=== PATIENT | male | born 1975 | race Caucasian/White ===

== ENCOUNTER 2017-12-09 19:44 | Inpatient (IN) ==
--- NOTE | 2017-12-09 19:49 | Emergency Department Note ---
Disposition Clinical Impression: Chronic schizophrenia Disposition: Admitted As Inpatient Condition: Good Time of Disposition: 23:20 General Adult HPI - General Stated complaint: eval Time Seen by Provider: 12/09/17 19:48 Source: patient Mode of arrival: ambulatory Limitations: no limitations Nursing Notes Reviewed: Yes Vital Signs Reviewed: Yes - History of Present Illness HPI Narrative: Male patient presents emergency department complaining of voices in his head that are telling him he cannot eat. [facility]. Does have a history of schizophrenia. Has not been taking his medication. States he has not eaten in the past week. He is agreeable to drink water but is still refusing to eat while here. Patient denies any suicidal or homicidal ideation. - Related Data Home Medications Medication Instructions Recorded Confirmed Benztropine [Cogentin] 0.5 mg PO BID 12/09/17 12/09/17 RX: Simvastatin [Zocor] 40 mg PO HS 12/09/17 12/09/17 risperiDONE [RisperDAL] 2 mg PO HS 12/09/17 12/09/17 Allergies Allergy/AdvReac Type Severity Reaction Status Date / Time shellfish derived Allergy Vomiting Verified 12/09/17 19:51 All systems ED: reviewed and negative except as stated. Review of Systems: As Per HPI Constitutional: Denies: fever, chills Cardiovascular: Denies: chest pain Respiratory: Denies: dyspnea Musculoskeletal: Reports: other (upper leg pain). Denies: back pain, neck pain Neurological: Denies: headache Psychiatric: Reports: auditory hallucinations. Denies: suicidal thoughts, homicidal thoughts, visual hallucinations Past Medical History - Past Medical History Attestation: Yes The following information was validated with the patient. Source: patient Medical history: Reports: no medical history - Social History Smoking Status: Former smoker Smokeless Tobacco Status: No Alcohol use: Reports: none Drug use: Reports: none Physical Exam - General Limitations: no limitations General appearance: alert, in no apparent distress - Head Head exam: atraumatic, normocephalic, normal inspection - Eye Eye exam: Present: normal appearance, PERRL, EOMI - ENT ENT exam: normal exam, normal oropharynx, mucous membranes moist - Neck Neck exam: Present: normal inspection, full ROM, trachea midline - Chest Chest inspection: Present: normal inspection, symmetric chest wall rise - Respiratory Respiratory exam: Absent: respiratory distress, accessory muscle use - Extremities Exam Extremities exam: Present: normal inspection. Absent: pedal edema - Back Exam Back exam: Present: normal inspection, full ROM - Neurological Exam Neurological exam: Present: alert, oriented X3 - Psychiatric Psychiatric exam: Present: flat affect - Skin Skin exam: Present: warm, dry, intact, normal color. Absent: rash, cyanosis Course Course Narrative: Patient is a risk to himself. He is not eating and will not eat while he is here. We have pink slip the patient will have Ia see him. Patient is agreeable with this. We will get a basic lab workup on him as well. He does complain of some aching sensation to his bilateral thigh areas. He is ambulating throughout the room with a blank stare. - Reevaluation(s) Reevaluation #1: We will admit patient to the hospital. Vital Signs Temperature 98.2 F 12/09/17 19:51 Pulse Rate 128 12/09/17 19:51 Respiratory Rate 14 12/09/17 19:51 Blood Pressure 111/87 12/09/17 19:51 O2 Sat by Pulse Oximetry 99 12/09/17 19:51 Temperature 98.2 F 12/09/17 19:51 Pulse Rate 128 12/09/17 19:51 Respiratory Rate 14 12/09/17 19:51 Blood Pressure 111/87 12/09/17 19:51 O2 Sat by Pulse Oximetry 99 12/09/17 19:51 Oxygen Delivery Oxygen Delivery Room Air Medical Decision Making - Medical Records Medical records reviewed: Yes I reviewed the patient's medical records. - Lab Data Lab results reviewed: Yes I reviewed the patient's lab results. Result diagrams: 12/09/17 20:20 12/09/17 20:20 Lab Results 12/09/17 12/09/17 12/09/17 Range/Units 20:05 20:05 20:20 WBC 5.1 (4.3-11.1) K/mcL RBC 5.60 H (4.19-5.50) M/mcL Hgb 16.0 (12.9-16.9) g/dL Hct 47.4 (37.5-50.1) % MCV 84.6 (83.0-100.0) fL MCH 28.6 (28.0-33.3) pg MCHC 33.8 (31.6-35.5) g/dL RDW 13.5 (11.5-14.5) % Plt Count 204 (140-400) K/mcL MPV 11.5 (9.4-12.4) fL Immature Gran % 0.4 (0-4) % Seg Neutrophils % 58.6 % Lymphocytes % 33.1 % Monocytes % 5.9 % Eosinophils % 1.2 % Basophils % 0.8 % Neutrophils # 3.0 (1.6-8.9) K/mcL Lymphocytes # 1.7 (0.6-4.6) K/mcL Monocytes # 0.3 (0.0-1.3) K/mcL Eosinophils # 0.1 (0.0-0.6) K/mcL Basophils # 0.0 (0.0-0.2) K/mcL Sodium (136-145) mEq/L Potassium (3.5-5.1) mEq/L Chloride (98-107) mEq/L Carbon Dioxide (23-29) mEq/L BUN (6-20) mg/dL Creatinine (0.70-1.30) mg/dL Est GFR ( Amer) (> 60) Est GFR (Non-Af Amer) (> 60) BUN/Creatinine Ratio (6-26) Glucose (70-105) mg/dL Calculated Osmolality (280-300) Calcium (8.6-10.3) mg/dL Urine Color Dark Yellow (Yellow) Urine Clarity Turbid A (Clear) Urine pH 6.0 (5.0-8.0) pH Units Ur Specific [place] 1.028 H (1.010-1.025) Urine Protein 30 H (Neg-Trace) mg/dL Urine Glucose (UA) Normal (Normal) mg/dL Urine Ketones 80 H (Negative) mg/dL Urine Blood Negative (Negative) Urine Nitrite Negative (Negative) Urine Bilirubin Moderate H (Negative) Urine Urobilinogen Normal (Normal) mg/dL Ur Leukocyte Esterase Small H (Negative) Urine Microscopic RBC 0-3 (0-3) per hpf Urine Microscopic WBC 0-3 (0-3) per hpf Ur Squamous Epith Cells Many H (None-Few) per lpf [place] Biurate Crystals Present Urine Bacteria None Seen (None-Few) per hpf Urine Mucus Many H (Few) Salicylates (15.0-30.0) mg/dL Urine Opiates Screen Negative (Adqgiw=998) ng/mL Acetaminophen (10-20) mcg/mL Ur Barbiturates Screen Negative (Zqyvub=574) ng/mL Ur Phencyclidine Scrn Negative (Cutoff=25) ng/mL Ur Amphetamines Screen Negative (Dlzwub=1703) ng/mL U Benzodiazepines Scrn Negative (Hdtvrm=789) ng/mL Urine Cocaine Screen Negative (Cutoff= 300) ng/mL U Marijuana (THC) Screen Negative (Cutoff = 50) ng/mL Ur Drug Screen Interp See Below Ethyl Alcohol (Less than 10) mg/dL 12/09/17 Range/Units 20:20 WBC (4.3-11.1) K/mcL RBC (4.19-5.50) M/mcL Hgb (12.9-16.9) g/dL Hct (37.5-50.1) % MCV (83.0-100.0) fL MCH (28.0-33.3) pg MCHC (31.6-35.5) g/dL RDW (11.5-14.5) % Plt Count (140-400) K/mcL MPV (9.4-12.4) fL Immature Gran % (0-4) % Seg Neutrophils % % Lymphocytes % % Monocytes % % Eosinophils % % Basophils % % Neutrophils # (1.6-8.9) K/mcL Lymphocytes # (0.6-4.6) K/mcL Monocytes # (0.0-1.3) K/mcL Eosinophils # (0.0-0.6) K/mcL Basophils # (0.0-0.2) K/mcL Sodium 133 L (136-145) mEq/L Potassium 3.0 L (3.5-5.1) mEq/L Chloride 94 L (98-107) mEq/L Carbon Dioxide 21 L (23-29) mEq/L BUN 31 H (6-20) mg/dL Creatinine 0.87 (0.70-1.30) mg/dL Est GFR ( Amer) > 60 (> 60) Est GFR (Non-Af Amer) > 60 (> 60) BUN/Creatinine Ratio 36 H (6-26) Glucose 93 (70-105) mg/dL Calculated Osmolality 282 (280-300) Calcium 9.9 (8.6-10.3) mg/dL Urine Color (Yellow) Urine Clarity (Clear) Urine pH (5.0-8.0) pH Units Ur Specific [place] (1.010-1.025) Urine Protein (Neg-Trace) mg/dL Urine Glucose (UA) (Normal) mg/dL Urine Ketones (Negative) mg/dL Urine Blood (Negative) Urine Nitrite (Negative) Urine Bilirubin (Negative) Urine Urobilinogen (Normal) mg/dL Ur Leukocyte Esterase (Negative) Urine Microscopic RBC (0-3) per hpf Urine Microscopic WBC (0-3) per hpf Ur Squamous Epith Cells (None-Few) per lpf [place] Biurate Crystals Urine Bacteria (None-Few) per hpf Urine Mucus (Few) Salicylates < 2.5 L (15.0-30.0) mg/dL Urine Opiates Screen (Pjdlmq=018) ng/mL Acetaminophen < 10 L (10-20) mcg/mL Ur Barbiturates Screen (Bmzgvd=453) ng/mL Ur Phencyclidine Scrn (Cutoff=25) ng/mL Ur Amphetamines Screen (Dlhvvs=4772) ng/mL U Benzodiazepines Scrn (Fzdwir=594) ng/mL Urine Cocaine Screen (Cutoff= 300) ng/mL U Marijuana (THC) Screen (Cutoff = 50) ng/mL Ur Drug Screen Interp Ethyl Alcohol < 10 (Less than 10) mg/dL Attestation Statement - Attestation Attestation: I, Solomon Riggs, examined this patient and my medical decision-making was reviewed with the PLANT MACHINIST/PA/Advanced Practice Nurse/Resident Physician. I agree with the documented findings, disposition and treatment plan as described except to the extent set forth below. 42-year-old male brought to emergency department for psychiatric evaluation. [facility] He was sent to the emergency department because he has been refusing by mouth intake over the past week. Patient states he is hearing voices and they introduced himself as got. They told him that he was abusing food and that he should stop eating. Patient believes that these voices are defined in that he has not eaten and he states he is not having symptoms that are repercussions of his actions. Patient is mildly hypokalemic. He is tachycardic likely from dehydration. He does state that he will drink water. We will have him medically cleared and evaluated by behavioral health.
[2017-12-09 20:26] LABS: Bilirubin,Urine Moderate (Negative); Blood,Urine Negative (Negative); Clarity,Urine Turbid (Clear); Color,Urine Dark Yellow (Yellow); Glucose,Urine (UA) Normal (Normal); Ketones,Urine 80 mg/dL (Negative); Leukocyte Esterase,Urine Small (Negative); Nitrite,Urine Negative (Negative); Protein,Urine 30 mg/dL (Neg-Trace); Specific Gravity,Urine 1.028 (1.010-1.025); Urobilinogen,Urine Normal (Normal)
[2017-12-09 20:32] LABS: Basophils % 0.8 %; Eosinophils # 0.1 K/mcL (0.0-0.6); Eosinophils % 1.2 %; Hematocrit 47.4 % (37.5-50.1); Immature Granulocytes % 0.4 % (0-4); Lymphocytes # 1.7 K/mcL (0.6-4.6); Lymphocytes % 33.1 %; Mean Corpuscular HGB Conc 33.8 g/dL (31.6-35.5); Mean Corpuscular Hemoglobin 28.6 pg (28.0-33.3); Mean Corpuscular Volume 84.6 fL (83.0-100.0); Mean Platelet Volume 11.5 fL (9.4-12.4); Monocytes # 0.3 K/mcL (0.0-1.3); Monocytes % 5.9 %; Platelet Count 204 K/mcL (140-400); Red Cell Distribution Width 13.5 % (11.5-14.5); Segmented Neutrophils % 58.6 %
[2017-12-09 20:35] LABS: Amphetamine Screen,Urine Negative ng/mL (Cutoff=1000); Barbiturate Screen,Urine Negative ng/mL (Cutoff=200); Benzodiazepines Screen,Urine Negative ng/mL (Cutoff=200); Cannabinoid Screen,Urine Negative ng/mL (Cutoff = 50); Cocaine Screen,Urine Negative ng/mL (Cutoff= 300); Opiate Screen,Urine Negative ng/mL (Cutoff=300); Phencyclidine Screen,Urine Negative ng/mL (Cutoff=25)
[2017-12-09 20:50] LABS: Acetaminophen < 10 mcg/mL (10-20); BUN/Creatinine Ratio 36 (6-26); Blood Urea Nitrogen 31 mg/dL (6-20); Calcium 9.9 mg/dL (8.6-10.3); Carbon Dioxide 21 mEq/L (23-29); Chloride 94 mEq/L (98-107); Ethanol < 10 mg/dL (Less than 10); Glucose 93 mg/dL (70-105); Osmolality,Calculated 282 (280-300); Salicylate < 2.5 mg/dL (15.0-30.0); Sodium 133 mEq/L (136-145); eGFR For Non-African Americans > 60 (> 60)
[2017-12-09 20:54] LABS: Mucus,Urine Many (Few); RBC,Urine 0-3 per hpf (0-3); Squamous Epithelial Cell,Urine Many per lpf (None-Few); WBC,Urine 0-3 per hpf (0-3)
[2017-12-09 20:55] LABS: Bacteria,Urine None Seen per hpf (None-Few)
[2017-12-09] MEDS ORDERED: MOM Conc 10 ML UD.LIQ PO PRN (23:28)
[2017-12-09] MEDS ORDERED: hydrOXYzine pamoate 25 MG CAPSULE PO PRN (23:28)
[2017-12-09] MEDS ORDERED: Mag Hydrox/Al Hydrox/Simeth 30 ML UDC PO PRN (23:28)
[2017-12-09] MEDS ORDERED: Ibuprofen 400 MG TABLET PO PRN (23:28)
[2017-12-09] MEDS ORDERED: Haloperidol Lactate 5 MG/ML VIAL IM PRN (23:28)
[2017-12-09] MEDS ORDERED: *HR* LORazepam 1 MG TABLET PO PRN (23:28)
[2017-12-09] MEDS ORDERED: *HR* LORazepam 2 MG/ML VIAL IM PRN (23:28)
--- NOTE | 2017-12-10 11:33 | Psychiatry History & Physical ---
Date of Encounter: 12/10/17 Time of Encounter: 11:30 History of Present Illness Patient Stated Chief Complaint: The relletn states that he went on a fast Medicare Admission Attestation: For traditional Medicare patients the provided hospital inpatient services are reasonable and necessary and in the case of services not specified as inpatient-only under 42 CFR 419.22 (n), that they are appropriately provided as inpatient services in accordance 42 CFR 412.3. For Critical Access Hospital the patient may reasonably be expected to be discharged or transferred to a hospital within 96 hours after admission to the Critical Access Hospital. Admitted From: Emergency Dept Plans for Post Hospital Care: Home History of Present Illness: Mr. Gore is a 42 year old male Complaint I have decided to go on a fast. If I stop eating certain cheondoism things will happen to me. I believe that God does not want me to beat. History of present illness. The patient has several hospitalizations. He [facility] in [facility]. He presented to the emergency room and was in a slightly malnourished state. The patient has schizophrenia. He is had a fixed delusion and auditory hallucinations. These involved that he has enough nutrition and then he does not need be. When asked he says that he does not feel hungry. And if he starts to eat food he starts to feel sick. Patient was taking medicines but for period of time he was laying in bed and did not get his medicines. The patient has home health care that includes family health and a home health psychiatrist but apparently lost his Medicaid and was not for reimbursement reasons. Thus the patient may have had a period time of his risperidone. The patient's next of kin is his father who was contacted last night. Past medical history. The patient reports no surgeries and no illnesses. There is reported history of GERD. The patient has no known drug allergies. He has an allergy to shellfish. The medicines are listed. Family history is essentially negative for psychiatric illness he reports his father had a heart attack. Social history the patient lives in the [facility] home he worked until about age 28. She is disabled. He denied smoking and apparently has no history of drug or alcohol abuse. Past Med Surg Social Fam HX - Past Medical History Source: patient Medical history: no medical history - Past Psychiatric History Psychiatric history: Reports: schizophrenia, previous psychiatric hospitalization Family psychiatric history: No Family History of Suicide: None - Past Surgical History Surgical History: no surgical history - Social History Smoking Status: Former smoker Smokeless Tobacco Status: No Alcohol use: none Drug use: none Occupational status: disabled Current living situation: [facility] Activity Level: Independent ambulation Recent Out of Country Travel Within the Last 8 Weeks: No Exposure or Possible Exposure to Illness During Travel: No - Family History Mother Name: alexandria gore Family Member Ethnicity: Non- Living Status: Age at : 53 Hx Family Cardiac Disorders: No Hx Family Respiratory Disorders: No Hx Family Cancer: Yes (dies of pancreatic cancer) Hx Family Genitourinary Disorders: No Hx Family Endocrine Disorder: No Hx Family Musculoskeletal Disorders: No Hx Family Neuromuscular Disorders: No Hx Family Neurologic Disorders: No Hx Family HEENT Disorders: No Hx Family Autoimmune Disorders: No Hx Family Reproductive Disorders: No Hx Family Psychosocial Disorders: Yes (depression) Hx Family Medical Disorders: No Medications & Allergies Benztropine [Cogentin] 0.5 mg PO BID 12/09/17 [History] Simvastatin [Zocor] 40 mg PO HS 12/09/17 [History] risperiDONE [RisperDAL] 2 mg PO HS 12/09/17 [History] Allergy/AdvReac Type Severity Reaction Status Date / Time shellfish derived Allergy Vomiting Verified 12/09/17 19:51 Review of Systems Constitutional: Reports: weight change Psychiatric: Reports: auditory hallucinations Exam - HEENT Head exam IM: Present: atraumatic Eye exam IM: Present: EOMI, normal appearance, PERRL ENT exam IM: Present: normal exam - Neurological Neurological exam: Present: CN II-XII intact - Respiratory Respiratory exam IM: Present: CTAB - GI/Abdominal GI/Abdominal exam IM: Present: normal bowel sounds, soft. Absent: tenderness - Extremities Extremities exam IM: Present: full ROM - Skin Skin exam IM: Present: dry, warm - Constitutional Vitals: Temp Pulse Resp BP Pulse Ox 79.2 F L 75 16 106/62 98 12/10/17 09:00 12/10/17 09:00 12/10/17 09:00 12/10/17 09:00 12/10/17 09:00 General appearance: age & developmentally appropriate, well-groomed, well- nourished - Musculoskeletal Gait: normal Station: relaxed Strength & Tone: normal for patient - Psychiatric Patient Orientation: Yes Person, Yes Time, Yes Place Level of alertness: Alert Behavior: calm, withdrawn Psychomotor activity: Slowed Eye Contact: Maintains Eye Contact Mood Description: Euthymic/stable Affect description: congruent with mood, full range Speech Volume: Soft/Quiet Speech pattern: normal rate, normal rhythm, normal tone, fluent, spontaneous Language & Vocabulary: consistent with education Thought Process: Linear, Goal Oriented Thought Content: No Suicidal ideation, No Homicidal ideation, No Overt delusions, Yes Ideas of reference, Yes Confucianist delusion, Yes Somatic delusion Perceptual Disturbances: Yes Auditory hallucinations, No Visual hallucinations Attention Span Ability: Capable of Sustained Attention, Unable to Sustain Attention Memory Description: Grossly Intact Patient Reliability: Reliable Historian Fund of knowledge: Yes abstraction ability, Yes average, Yes aware of current events Intelligence Estimate: Average Judgment: Poor Insight: None Results - Drug Levels and Toxicology Drug Levels and Toxicology: Drug Levels and Toxicity 12/09/17 12/09/17 20:05 20:20 Urine Opiates Screen Negative Acetaminophen < 10 L Ur Barbiturates Screen Negative Ur Phencyclidine Scrn Negative Ur Amphetamines Screen Negative U Benzodiazepines Scrn Negative Urine Cocaine Screen Negative U Marijuana (THC) Screen Negative Ethyl Alcohol < 10 - Labs Labs: Laboratory Last Values WBC 5.1 K/mcL (4.3-11.1) 12/09/17 20:20 RBC 5.60 M/mcL (4.19-5.50) H 12/09/17 20:20 Hgb 16.0 g/dL (12.9-16.9) 12/09/17 20:20 Hct 47.4 % (37.5-50.1) 12/09/17 20:20 MCV 84.6 fL (83.0-100.0) 12/09/17 20:20 MCH 28.6 pg (28.0-33.3) 12/09/17 20:20 MCHC 33.8 g/dL (31.6-35.5) 12/09/17 20:20 RDW 13.5 % (11.5-14.5) 12/09/17 20:20 Plt Count 204 K/mcL (140-400) 12/09/17 20:20 MPV 11.5 fL (9.4-12.4) 12/09/17 20:20 Immature Gran % 0.4 % (0-4) 12/09/17 20:20 Seg Neutrophils % 58.6 % 12/09/17 20:20 Lymphocytes % 33.1 % 12/09/17 20:20 Monocytes % 5.9 % 12/09/17 20:20 Eosinophils % 1.2 % 12/09/17 20:20 Basophils % 0.8 % 12/09/17 20:20 Neutrophils # 3.0 K/mcL (1.6-8.9) 12/09/17 20:20 Lymphocytes # 1.7 K/mcL (0.6-4.6) 12/09/17 20:20 Monocytes # 0.3 K/mcL (0.0-1.3) 12/09/17 20:20 Eosinophils # 0.1 K/mcL (0.0-0.6) 12/09/17 20:20 Basophils # 0.0 K/mcL (0.0-0.2) 12/09/17 20:20 Sodium 133 mEq/L (136-145) L 12/09/17 20:20 Potassium 3.0 mEq/L (3.5-5.1) L 12/09/17 20:20 Chloride 94 mEq/L (98-107) L 12/09/17 20:20 Carbon Dioxide 21 mEq/L (23-29) L 12/09/17 20:20 BUN 31 mg/dL (6-20) H 12/09/17 20:20 Creatinine 0.87 mg/dL (0.70-1.30) 12/09/17 20:20 Est GFR ( Amer) > 60 (> 60) 12/09/17 20:20 Est GFR (Non-Af Amer) > 60 (> 60) 12/09/17 20:20 BUN/Creatinine Ratio 36 (6-26) H 12/09/17 20:20 Glucose 93 mg/dL (70-105) 12/09/17 20:20 Calculated Osmolality 282 (280-300) 12/09/17 20:20 Calcium 9.9 mg/dL (8.6-10.3) 12/09/17 20:20 Urine Color Dark Yellow (Yellow) 12/09/17 20:05 Urine Clarity Turbid (Clear) A 12/09/17 20:05 Urine pH 6.0 pH Units (5.0-8.0) 12/09/17 20:05 Ur Specific [place] 1.028 (1.010-1.025) H 12/09/17 20:05 Urine Protein 30 mg/dL (Neg-Trace) H 12/09/17 20:05 Urine Glucose (UA) Normal mg/dL (Normal) 12/09/17 20:05 Urine Ketones 80 mg/dL (Negative) H 12/09/17 20:05 Urine Blood Negative (Negative) 12/09/17 20:05 Urine Nitrite Negative (Negative) 12/09/17 20:05 Urine Bilirubin Moderate (Negative) H 12/09/17 20:05 Urine Urobilinogen Normal mg/dL (Normal) 12/09/17 20:05 Ur Leukocyte Esterase Small (Negative) H 12/09/17 20:05 Urine Microscopic RBC 0-3 per hpf (0-3) 12/09/17 20:05 Urine Microscopic WBC 0-3 per hpf (0-3) 12/09/17 20:05 Ur Squamous Epith Cells Many per lpf (None-Few) H 12/09/17 20:05 [place] Biurate Crystals Present 12/09/17 20:05 Urine Bacteria None Seen per hpf (None-Few) 12/09/17 20:05 Urine Mucus Many (Few) H 12/09/17 20:05 Salicylates < 2.5 mg/dL (15.0-30.0) L 12/09/17 20:20 Urine Opiates Screen Negative ng/mL (Ocdmap=984) 12/09/17 20:05 Acetaminophen < 10 mcg/mL (10-20) L 12/09/17 20:20 Ur Barbiturates Screen Negative ng/mL (Bfrrti=288) 12/09/17 20:05 Ur Phencyclidine Scrn Negative ng/mL (Cutoff=25) 12/09/17 20:05 Ur Amphetamines Screen Negative ng/mL (Irwmnq=9042) 12/09/17 20:05 U Benzodiazepines Scrn Negative ng/mL (Hljsid=167) 12/09/17 20:05 Urine Cocaine Screen Negative ng/mL (Cutoff= 300) 12/09/17 20:05 U Marijuana (THC) Screen Negative ng/mL (Cutoff = 50) 12/09/17 20:05 Ur Drug Screen Interp See Below 12/09/17 20:05 Ethyl Alcohol < 10 mg/dL (Less than 10) 12/09/17 20:20 Assessment and Plan (1) Paranoid schizophrenia Current visit: Yes Status: Acute Plan: Admit inpatient for safety and stabilization, Close observation, Suicide Precautions per unit protocol, Encourage participation in unit milieu, Group Therapy, Monitor sleep, Monitor appetite, Secure weapons Risks, benefits, side effects, alternatives discussed w/pt: No Patient agreeable to treatment: No Plans for Post Hospital Care: Home Estimated Length of Stay (Days): 10 (2) Anorexia Current visit: Yes Status: Acute Plan: Monitor appetite, Family/Supportive other meeting Risks, benefits, side effects, alternatives discussed w/pt: Yes Patient agreeable to treatment: Yes Plans for Post Hospital Care: Home (3) Chronic schizophrenia Current visit: Yes Status: Chronic Plan: Encourage participation in unit milieu, Group Therapy Risks, benefits, side effects, alternatives discussed w/pt: Yes Patient agreeable to treatment: Yes Plans for Post Hospital Care: Home
[2017-12-10] MEDS: risperiDONE 1 MG TABLET PO SCH (21:18)
[2017-12-11 08:27] LABS: Basophils % 0.6 %; Eosinophils # 0.1 K/mcL (0.0-0.6); Eosinophils % 1.5 %; Hematocrit 44.9 % (37.5-50.1); Immature Granulocytes % 0.2 % (0-4); Lymphocytes % 42.4 %; Mean Corpuscular HGB Conc 33.4 g/dL (31.6-35.5); Mean Corpuscular Hemoglobin 28.3 pg (28.0-33.3); Mean Corpuscular Volume 84.7 fL (83.0-100.0); Mean Platelet Volume 11.8 fL (9.4-12.4); Monocytes # 0.5 K/mcL (0.0-1.3); Monocytes % 10.5 %; Neutrophils # 2.1 K/mcL (1.6-8.9); Platelet Count 188 K/mcL (140-400); Red Cell Distribution Width 13.4 % (11.5-14.5); Segmented Neutrophils % 44.8 %
[2017-12-11 08:37] LABS: Alanine Aminotransferase 8 Units/L (7-52); Albumin 4.3 g/dL (3.5-5.7); Alkaline Phosphatase 54 Units/L (34-104); Aspartate Amino Transferase 13 Units/L (13-39); BUN/Creatinine Ratio 15 (6-26); Bilirubin,Total 0.8 mg/dL (0.3-1.0); Blood Urea Nitrogen 15 mg/dL (6-20); Calcium 9.6 mg/dL (8.6-10.3); Carbon Dioxide 27 mEq/L (23-29); Chloride 97 mEq/L (98-107); Globulin 2.1 g/dL (2.4-3.5); Glucose 72 mg/dL (70-105); Osmolality,Calculated 279 (280-300); Potassium 3.5 mEq/L (3.5-5.1); Sodium 135 mEq/L (136-145); Total Protein 6.4 g/dL (6.4-8.9); eGFR For Non-African Americans > 60 (> 60)
[2017-12-11] MEDS ORDERED: *HR* LORazepam 1 MG TABLET PO ONE (11:17)
--- NOTE | 2017-12-11 11:35 | Psychiatry Progress Note ---
Date of Encounter: 12/11/17 Time of Encounter: 11:30 Subjective Interval history: ID the patient is a 39-year-old white male. Chief complaint I feel the voice of God does not want me to eat. History of present illness: The patient has been admitted. He had a period of time where he was off antipsychotics. At one point the patient was on Zyprexa. And he did not notice much improvement but felt that he was even better on Zyprexa Zydis the dissolving form of the medicine. While we do not have these records the patient's able to tell us that he was on Zyprexa. The patient's father who was a physician may have been concerned and recommended a switch. The psychotic relapse may have occurred because of period of time off risperidone. Or the switch from Zyprexa to Risperdal. The patient reported first rank schneiderian symptoms thought insertion, thought withdrawal, clairvoyance ideas of reference and delusions of passivity. The patient did not want to take cyproheptadine Marinol or Megace. He agreed to lorazepam 1 mg one time. As he does become nervous or anxious with the thought of having to eat or eating food. I attempted to call the patient's father at the phone number [phone]. I left a message for him to call me back Review of Systems Gastrointestinal: Reports: other Psychiatric: Reports: change in appetite, auditory hallucinations Results - Vital Signs Vital Signs: Temp Pulse Resp BP Pulse Ox 97.7 F 144 20 99/70 100 12/11/17 09:00 12/11/17 09:00 12/11/17 09:00 12/11/17 09:00 12/11/17 09:00 - Labs Labs: Laboratory Results - last 24 hr 12/11/17 12/11/17 08:04 08:04 WBC 4.7 RBC 5.30 Hgb 15.0 Hct 44.9 MCV 84.7 MCH 28.3 MCHC 33.4 RDW 13.4 Plt Count 188 MPV 11.8 Immature Gran % 0.2 Seg Neutrophils % 44.8 Lymphocytes % 42.4 Monocytes % 10.5 Eosinophils % 1.5 Basophils % 0.6 Neutrophils # 2.1 Lymphocytes # 2.0 Monocytes # 0.5 Eosinophils # 0.1 Basophils # 0.0 Sodium 135 L Potassium 3.5 Chloride 97 L Carbon Dioxide 27 BUN 15 Creatinine 1.03 Est GFR ( Amer) > 60 Est GFR (Non-Af Amer) > 60 BUN/Creatinine Ratio 15 Glucose 72 Calculated Osmolality 279 L Calcium 9.6 Total Bilirubin 0.8 AST 13 ALT 8 Alkaline Phosphatase 54 Serum Total Protein 6.4 Albumin 4.3 Globulin 2.1 L Albumin/Globulin Ratio 2.0 Assessment and Plan (1) Paranoid schizophrenia Current visit: Yes Status: Acute Plan: Continue hospitalization, Close observation, Suicide Precautions per unit protocol, Encourage participation in unit milieu, Secure weapons Risks, benefits, side effects, alternatives discussed w/pt: No Patient agreeable to treatment: No (2) Anorexia Current visit: Yes Status: Acute Plan: Continue hospitalization, Close observation, Suicide Precautions per unit protocol, Monitor appetite, Secure weapons Risks, benefits, side effects, alternatives discussed w/pt: Yes Patient agreeable to treatment: Yes (3) Chronic schizophrenia Current visit: Yes Status: Chronic Plan: Monitor sleep, Monitor appetite, Secure weapons Risks, benefits, side effects, alternatives discussed w/pt: Yes Patient agreeable to treatment: Yes (4) Patient's noncompliance with other medical treatment and regimen Current visit: Yes Status: Acute Plan: Group Therapy, Family/Supportive other meeting, Other Risks, benefits, side effects, alternatives discussed w/pt: Yes Patient agreeable to treatment: Yes Consult Discharge Plan - Plan Psychiatry Exam - Constitutional Vitals: Temp Pulse Resp BP Pulse Ox 97.7 F 144 20 99/70 100 12/11/17 09:00 12/11/17 09:00 12/11/17 09:00 12/11/17 09:00 12/11/17 09:00 General appearance: age & developmentally appropriate, well-groomed, well- nourished - Musculoskeletal Gait: slow Station: relaxed Strength & Tone: normal for patient - Psychiatric Patient Orientation: Yes Person, Yes Time, Yes Place Level of alertness: Alert Behavior: calm, cooperative Psychomotor activity: Normal Eye Contact: Maintains Eye Contact Mood Description: Anxious Affect description: full range, constricted Speech Volume: Normal Speech pattern: normal rate, normal rhythm, normal tone, fluent, spontaneous Language & Vocabulary: consistent with education Thought Process: Linear, Goal Oriented Thought Content: No Suicidal ideation, No Homicidal ideation, No Overt delusions, Yes Ideas of reference, Yes Episcopal delusion, Yes Thought broadcasting, Yes Thought insertion Perceptual Disturbances: Yes Auditory hallucinations, No Visual hallucinations Attention Span Ability: Capable of Focused Attention Memory Description: Grossly Intact Patient Reliability: Reliable Historian Fund of knowledge: Yes abstraction ability, Yes aware of current events Intelligence Estimate: Average Judgment: Fair Insight: Partial
[2017-12-11 11:53] LABS: Bilirubin,Urine Small (Negative); Blood,Urine Negative (Negative); Clarity,Urine Clear (Clear); Color,Urine Yellow (Yellow); Glucose,Urine (UA) Normal (Normal); Ketones,Urine 80 mg/dL (Negative); Leukocyte Esterase,Urine Negative (Negative); Nitrite,Urine Negative (Negative); Protein,Urine Negative (Neg-Trace); Specific Gravity,Urine 1.014 (1.010-1.025); Urobilinogen,Urine Normal (Normal)
[2017-12-11] MEDS: risperiDONE 1 MG TABLET PO SCH (20:49)
--- NOTE | 2017-12-12 09:09 | Psychiatry Progress Note ---
Date of Encounter: 12/12/17 Time of Encounter: 09:05 Subjective Interval history: Client is not eating. No solid food since being admitted. He will take a little bit of orange juice in the morning but that is it except for water throughout the day. Patient states his "advisor" prevents him from eating. When asked what will happen if he resists his advisor patient states the voice will get louder, more frequent, and more intrusive. Currently cooperative with medications. Taking Risperdal and Invega. Not sure the reason for these two meds together as they are so similar. Looks like current plan may be to get him on Sustenna. Since Invega is new will not change med regimen today but may increase Invega tomorrow while titrating down on Risperdal. Client is very pleasant but clearly at risk for complications from not eating. Labs and EKG ok at this time. Review of Systems Constitutional: Denies: fever, chills, weakness, weight change Eyes: Denies: eye pain, vision change Ears, Nose, Throat: Denies: ear pain, throat pain, dental pain, hearing loss, congestion Cardiovascular: Denies: chest pain, palpitations, dyspnea on exertion Respiratory: Denies: cough, dyspnea, wheezes Gastrointestinal: Denies: abdominal pain, nausea, vomiting, diarrhea, constipation Musculoskeletal: Denies: joint swelling, joint pain Neurological: Denies: headache, weakness, numbness, memory loss Psychiatric: Reports: change in appetite, auditory hallucinations Results - Vital Signs Vital Signs: Temp Pulse Resp BP Pulse Ox 97.8 F 114 18 121/79 100 12/11/17 20:04 12/11/17 20:04 12/11/17 20:04 12/11/17 20:04 12/11/17 20:04 - Labs Labs: Laboratory Results - last 24 hr 12/11/17 11:35 Urine Color Yellow Urine Clarity Clear Urine pH 6.0 Ur Specific [place] 1.014 Urine Protein Negative Urine Glucose (UA) Normal Urine Ketones 80 H Urine Blood Negative Urine Nitrite Negative Urine Bilirubin Small H Urine Urobilinogen Normal Ur Leukocyte Esterase Negative Ur Culture Indicated? NO Assessment and Plan (1) Paranoid schizophrenia Current visit: Yes Status: Acute Plan: Continue hospitalization, Close observation, Suicide Precautions per unit protocol, Encourage participation in unit milieu, Group Therapy, Monitor sleep, Monitor appetite Risks, benefits, side effects, alternatives discussed w/pt: No Patient agreeable to treatment: No Consult Discharge Plan - Plan Referrals: NONE,PCP [Primary Care Provider] - Psychiatry Exam - Constitutional Vitals: Temp Pulse Resp BP Pulse Ox 97.8 F 114 18 121/79 100 12/11/17 20:04 12/11/17 20:04 12/11/17 20:04 12/11/17 20:04 12/11/17 20:04 General appearance: thin - Musculoskeletal Gait: normal Station: relaxed Strength & Tone: normal for patient - Psychiatric Patient Orientation: Yes Person, Yes Time, Yes Place Level of alertness: Alert Behavior: calm, cooperative Psychomotor activity: Normal Eye Contact: Maintains Eye Contact Mood Description: Depressed Affect description: blunted Speech Volume: Normal Speech pattern: normal rate, normal rhythm, normal tone, fluent, spontaneous Language & Vocabulary: consistent with education Thought Process: Linear Thought Content: No Suicidal ideation, No Homicidal ideation, Yes Overt delusions Perceptual Disturbances: Yes Auditory hallucinations Attention Span Ability: Capable of Focused Attention Memory Description: Grossly Intact Patient Reliability: Reliable Historian Fund of knowledge: Yes abstraction ability, Yes aware of current events Intelligence Estimate: Average Judgment: Poor Insight: Partial
[2017-12-12] MEDS: risperiDONE 1 MG TABLET PO SCH (20:48)
--- NOTE | 2017-12-13 10:37 | Psychiatry Progress Note ---
Date of Encounter: 12/13/17 Time of Encounter: 10:34 Subjective Interval history: Doing a bit better. Able to eat some cereal yesterday and a little bit of breakfast this morning. Client reports the voices are allowing him to eat a little bit but will tell him to stop if he is getting too much. No where near adequate nutritional intake but making some progress. Will move forward with increasing Invega and decreasing Risperdal today. Plan is still to transition to Invega Sustenna. Client denies feeling light headed, dizzy, orthostatic, or unsteady on feet. Heart rate has increased and blood pressure has gone down slightly. Doubt lab work will show any major changes yet. Will continue to monitor medically. Client is very pleasant and not a problem. Still psychotic but showing increased ability to cope with hallucinations. Review of Systems Constitutional: Denies: fever, chills, weakness, weight change Eyes: Denies: eye pain, vision change Ears, Nose, Throat: Denies: ear pain, throat pain, dental pain, hearing loss, congestion Cardiovascular: Denies: chest pain, palpitations, dyspnea on exertion Respiratory: Denies: cough, dyspnea, wheezes Gastrointestinal: Denies: abdominal pain, nausea, vomiting, diarrhea, constipation Musculoskeletal: Denies: joint swelling, joint pain Neurological: Denies: headache, weakness, numbness, memory loss Psychiatric: Reports: change in appetite, auditory hallucinations Results - Vital Signs Vital Signs: Temp Pulse Resp BP Pulse Ox 97.8 F 125 18 118/79 100 12/13/17 09:00 12/13/17 09:00 12/13/17 09:00 12/13/17 09:00 12/13/17 09:00 Assessment and Plan (1) Paranoid schizophrenia Current visit: Yes Status: Acute Plan: Continue hospitalization, Close observation, Suicide Precautions per unit protocol, Encourage participation in unit milieu, Group Therapy, Monitor sleep, Monitor appetite Risks, benefits, side effects, alternatives discussed w/pt: No Patient agreeable to treatment: No Consult Discharge Plan - Plan Referrals: NONE,PCP [Primary Care Provider] - Psychiatry Exam - Constitutional Vitals: Temp Pulse Resp BP Pulse Ox 97.8 F 125 18 118/79 100 12/13/17 09:00 12/13/17 09:00 12/13/17 09:00 12/13/17 09:00 12/13/17 09:00 General appearance: thin - Musculoskeletal Gait: normal Station: relaxed Strength & Tone: normal for patient - Psychiatric Patient Orientation: Yes Person, Yes Time, Yes Place Level of alertness: Alert Behavior: calm, cooperative Psychomotor activity: Normal Eye Contact: Maintains Eye Contact Mood Description: Depressed Affect description: congruent with mood Speech Volume: Normal Speech pattern: normal rate, normal rhythm, normal tone, fluent, spontaneous Language & Vocabulary: consistent with education Thought Process: Linear Thought Content: No Suicidal ideation, No Homicidal ideation, No Overt delusions Perceptual Disturbances: Yes Auditory hallucinations Attention Span Ability: Capable of Focused Attention Memory Description: Grossly Intact Patient Reliability: Reliable Historian Fund of knowledge: Yes abstraction ability, Yes aware of current events Intelligence Estimate: Average Judgment: Limited Insight: Partial
[2017-12-13] MEDS ORDERED: risperiDONE 1 MG TABLET PO SCH (21:00)
[2017-12-14 08:45] LABS: Chol/HDL Ratio 2.8 (0-4.9)
--- NOTE | 2017-12-14 11:20 | Psychiatry Progress Note ---
Date of Encounter: 12/14/17 Time of Encounter: 10:00 Subjective Interval history: History of present illness. The patient has several hospitalizations. He lives in a [facility]dc and [facility]. He presented to the emergency room and was in a slightly malnourished state. The patient has schizophrenia. He is had a fixed delusion and auditory hallucinations. These involved that he has enough nutrition and then he does not need be. When asked he says that he does not feel hungry. And if he starts to eat food he starts to feel sick. Patient was taking medicines but for period of time he was laying in bed and did not get his medicines. The patient has home health care that includes family health and a home health psychiatrist but apparently lost his Medicaid and was not for reimbursement reasons. Thus the patient may have had a period time of his risperidone. The patient's next of kin is his father who was contacted last night. Pt is a 42 yo,, male, who presents for Schizophrenia. Pt noted that he feels "a little better." Pt denied any thought to harm himself or anyone else. Pt denied any side effects to current medications. Pt noted he felt safe and comfortable on the unit, "I just feel like I get in the way at times." Pt was in agreement with current treatment plan. Pt noted that he is doing alright today. Pt noted he slept 10 hours last night. Pt noted his appetite is better. Pt rated his depression a 0, on a scale of zero to ten with ten being the worst and zero being none. Pt rate his anxiety a 2-3, on the same scale. Pt denied any auditory or visiual hallucinations. Pt denied any current thoughts to harm himself or anyone else. No TD noted, AIMS=0 Tobacco: Denies any current Alcohol: Denies any current Street: Denies any current Caffeine: 2-3 drinks per day Pt denies any hx of HIV, Hep C, TBI or Seizures. 1.Interval hx 2.Continue current medications 3.Review current labs 4.Pt had an opportunity to ask questions and discuss current treatment plan. 5.Supportive therapy was provided 6.Pt encouraged to consider group or individual therapy 7.Pt was in agreement with treatment plan. 8.Pt was educated on the risks benefits and side effects of current medications. 9. Pt agreed to start Paliperidone 234 mg IM with follow up injection in 7 days of 156 mg IM and then return to Q28D 234 mg Paliperidone IM. 10. D/C risperidone PO 11. D/C Paliperidone PO after 156 injection in 7days Review of Systems Constitutional: Denies: fever, chills, weakness, weight change Eyes: Denies: eye pain, vision change Ears, Nose, Throat: Denies: ear pain, throat pain, dental pain, hearing loss, congestion Cardiovascular: Denies: chest pain, palpitations, dyspnea on exertion Respiratory: Denies: cough, dyspnea, wheezes Gastrointestinal: Denies: abdominal pain, nausea, vomiting, diarrhea, constipation Musculoskeletal: Denies: joint swelling, joint pain Neurological: Denies: headache, weakness, numbness, memory loss Psychiatric: Reports: change in appetite, auditory hallucinations Results - Vital Signs Vital Signs: Temp Pulse Resp BP Pulse Ox 97.7 F 140 18 111/80 100 12/14/17 09:00 12/14/17 09:00 12/14/17 09:00 12/14/17 09:00 12/14/17 09:00 - Labs Labs: Laboratory Results - last 24 hr 12/14/17 07:53 Triglycerides 89 Cholesterol 154 LDL Cholesterol, Calc 81 VLDL Cholesterol, Calc 18 HDL Cholesterol 55 Cholesterol/HDL Ratio 2.8 Assessment and Plan (1) Chronic schizophrenia Current visit: Yes Status: Chronic Plan: Continue hospitalization, Close observation, Suicide Precautions per unit protocol, Encourage participation in unit milieu, Group Therapy, Monitor sleep, Monitor appetite Risks, benefits, side effects, alternatives discussed w/pt: Yes Patient agreeable to treatment: Yes (2) Anorexia Current visit: Yes Status: Acute Plan: Continue hospitalization, Close observation, Suicide Precautions per unit protocol, Encourage participation in unit milieu, Group Therapy, Monitor sleep, Monitor appetite Risks, benefits, side effects, alternatives discussed w/pt: Yes Patient agreeable to treatment: Yes (3) Patient's noncompliance with other medical treatment and regimen Current visit: Yes Status: Acute Plan: Continue hospitalization, Close observation, Suicide Precautions per unit protocol, Encourage participation in unit milieu, Group Therapy, Monitor sleep, Monitor appetite Risks, benefits, side effects, alternatives discussed w/pt: Yes Patient agreeable to treatment: Yes Consult Discharge Plan - Plan Referrals: NONE,PCP [Primary Care Provider] - Psychiatry Exam - Constitutional Vitals: Temp Pulse Resp BP Pulse Ox 97.7 F 140 18 111/80 100 12/14/17 09:00 12/14/17 09:00 12/14/17 09:00 12/14/17 09:00 12/14/17 09:00 General appearance: age & developmentally appropriate, well-groomed, well- nourished - Musculoskeletal Gait: normal Station: relaxed Strength & Tone: normal for patient - Psychiatric Patient Orientation: Yes Person, Yes Time, Yes Place Level of alertness: Alert Behavior: calm, cooperative, withdrawn Psychomotor activity: Slowed Eye Contact: Maintains Eye Contact Mood Description: Euthymic/stable, Depressed Affect description: congruent with mood, full range Speech Volume: Normal Speech pattern: normal rate, normal rhythm, normal tone, fluent, spontaneous Language & Vocabulary: consistent with education Thought Process: Linear, Goal Oriented, Thought Blocking, Disorganized (at times, confusion noted) Thought Content: No Suicidal ideation, No Homicidal ideation, No Overt delusions Perceptual Disturbances: No Auditory hallucinations (significant hx noted, resolving, denies current, quesitonable thought blocking), No Visual hallucinations Attention Span Ability: Capable of Focused Attention Memory Description: Grossly Intact Patient Reliability: Reliable Historian Fund of knowledge: Yes abstraction ability, Yes aware of current events Intelligence Estimate: Average Judgment: Limited Insight: Partial
--- NOTE | 2017-12-15 10:40 | Psychiatry Progress Note ---
Date of Encounter: 12/15/17 Time of Encounter: 10:35 Subjective Interval history: Pt is a 42 yo,, male, who presents for Schizophrenia. Pt noted that he feels "a little better." Pt denied any thought to harm himself or anyone else. Pt denied any side effects to current medications. Pt noted he felt safe and comfortable on the unit, "I just feel like I get in the way at times." Pt was in agreement with current treatment plan. Pt noted that he is doing alright today. Pt noted he slept very good 10 hours last night. Pt noted his appetite is good improving. Pt rated his depression a 0, on a scale of zero to ten with ten being the worst and zero being none. Pt rate his anxiety a 1, on the same scale. Pt denied any auditory or visiual hallucinations. Pt denied any current thoughts to harm himself or anyone else. No TD noted, AIMS=0 Tobacco: Denies any current Alcohol: Denies any current Street: Denies any current Caffeine: 2-3 drinks per day Pt denies any hx of HIV, Hep C, TBI or Seizures. 1.Interval hx 2.Continue current medications 3.Review current labs 4.Pt had an opportunity to ask questions and discuss current treatment plan. 5.Supportive therapy was provided 6.Pt encouraged to consider group or individual therapy 7.Pt was in agreement with treatment plan. 8.Pt was educated on the risks benefits and side effects of current medications. 9. Pt agreed to start Paliperidone 234 mg IM with follow up injection in 7 days of 156 mg IM and then return to Q28D 234 mg Paliperidone IM. 10. D/C Paliperidone PO after 156 injection in 7days Review of Systems Constitutional: Denies: fever, chills, weakness, weight change Eyes: Denies: eye pain, vision change Ears, Nose, Throat: Denies: ear pain, throat pain, dental pain, hearing loss, congestion Cardiovascular: Denies: chest pain, palpitations, dyspnea on exertion Respiratory: Denies: cough, dyspnea, wheezes Gastrointestinal: Denies: abdominal pain, nausea, vomiting, diarrhea, constipation Musculoskeletal: Denies: joint swelling, joint pain Neurological: Denies: headache, weakness, numbness, memory loss Psychiatric: Reports: change in appetite, auditory hallucinations Results - Vital Signs Vital Signs: Temp Pulse Resp BP Pulse Ox 97.8 F 124 20 118/76 98 12/15/17 09:00 12/15/17 09:00 12/15/17 09:00 12/15/17 09:00 12/15/17 09:00 Assessment and Plan (1) Chronic schizophrenia Current visit: Yes Status: Chronic Plan: Continue hospitalization, Close observation, Suicide Precautions per unit protocol, Encourage participation in unit milieu, Group Therapy, Monitor sleep, Monitor appetite Risks, benefits, side effects, alternatives discussed w/pt: Yes Patient agreeable to treatment: Yes (2) Anorexia Current visit: Yes Status: Acute Plan: Continue hospitalization, Close observation, Suicide Precautions per unit protocol, Encourage participation in unit milieu, Group Therapy, Monitor sleep, Monitor appetite Risks, benefits, side effects, alternatives discussed w/pt: Yes Patient agreeable to treatment: Yes (3) Patient's noncompliance with other medical treatment and regimen Current visit: Yes Status: Acute Plan: Continue hospitalization, Close observation, Suicide Precautions per unit protocol, Encourage participation in unit milieu, Group Therapy, Monitor sleep, Monitor appetite Risks, benefits, side effects, alternatives discussed w/pt: Yes Patient agreeable to treatment: Yes Consult Discharge Plan - Plan Referrals: NONE,PCP [Primary Care Provider] - Psychiatry Exam - Constitutional Vitals: Temp Pulse Resp BP Pulse Ox 97.8 F 124 20 118/76 98 12/15/17 09:00 12/15/17 09:00 12/15/17 09:00 12/15/17 09:00 12/15/17 09:00 General appearance: age & developmentally appropriate, well-groomed, well- nourished - Musculoskeletal Gait: normal Station: relaxed Strength & Tone: normal for patient - Psychiatric Patient Orientation: Yes Person, Yes Time, Yes Place Level of alertness: Alert Behavior: calm, cooperative Psychomotor activity: Slowed Eye Contact: Maintains Eye Contact Mood Description: Euthymic/stable Affect description: congruent with mood, flat Speech Volume: Normal Speech pattern: normal rate, normal rhythm, normal tone, fluent, spontaneous Language & Vocabulary: consistent with education Thought Process: Linear, Goal Oriented, Thought Blocking Thought Content: No Suicidal ideation, No Homicidal ideation, No Overt delusions Perceptual Disturbances: No Auditory hallucinations, No Visual hallucinations Attention Span Ability: Capable of Focused Attention Memory Description: Grossly Intact Patient Reliability: Reliable Historian Fund of knowledge: Yes abstraction ability, Yes aware of current events Intelligence Estimate: Average Judgment: Limited Insight: Partial
[2017-12-15] MEDS ORDERED: Paliperidone Palmitate [Invega Sustenna] 234 MG IM SCH (17:00)
--- NOTE | 2017-12-16 11:55 | Psychiatry Progress Note ---
Date of Encounter: 12/16/17 Time of Encounter: 10:40 Review of Systems Constitutional: Denies: fever, chills, weakness, weight change Eyes: Denies: eye pain, vision change Ears, Nose, Throat: Denies: ear pain, throat pain, dental pain, hearing loss, congestion Cardiovascular: Denies: chest pain, palpitations, dyspnea on exertion Respiratory: Denies: cough, dyspnea, wheezes Gastrointestinal: Denies: abdominal pain, nausea, vomiting, diarrhea, constipation Musculoskeletal: Denies: joint swelling, joint pain Neurological: Denies: headache, weakness, numbness, memory loss Psychiatric: Reports: change in appetite, auditory hallucinations Results - Vital Signs Vital Signs: Temp Pulse Resp BP Pulse Ox 97.7 F 115 16 106/74 100 12/16/17 09:00 12/16/17 09:00 12/16/17 09:00 12/16/17 09:00 12/16/17 09:00 Assessment and Plan (1) Chronic schizophrenia Current visit: Yes Status: Chronic Plan: Continue hospitalization, Close observation, Suicide Precautions per unit protocol, Encourage participation in unit milieu, Group Therapy, Monitor sleep, Monitor appetite Risks, benefits, side effects, alternatives discussed w/pt: Yes Patient agreeable to treatment: Yes (2) Anorexia Current visit: Yes Status: Acute Plan: Continue hospitalization, Close observation, Suicide Precautions per unit protocol, Encourage participation in unit milieu, Group Therapy, Monitor sleep, Monitor appetite Risks, benefits, side effects, alternatives discussed w/pt: Yes Patient agreeable to treatment: Yes (3) Patient's noncompliance with other medical treatment and regimen Current visit: Yes Status: Acute Plan: Continue hospitalization, Close observation, Suicide Precautions per unit protocol, Encourage participation in unit milieu, Group Therapy, Monitor sleep, Monitor appetite Risks, benefits, side effects, alternatives discussed w/pt: Yes Patient agreeable to treatment: Yes Consult Discharge Plan - Plan Referrals: NONE,PCP [Primary Care Provider] - Psychiatry Exam - Constitutional Vitals: Temp Pulse Resp BP Pulse Ox 97.7 F 115 16 106/74 100 12/16/17 09:00 12/16/17 09:00 12/16/17 09:00 12/16/17 09:00 12/16/17 09:00 General appearance: age & developmentally appropriate, well-groomed, well- nourished - Musculoskeletal Gait: normal Station: relaxed Strength & Tone: normal for patient - Psychiatric Patient Orientation: Yes Person, Yes Time, Yes Place Level of alertness: Alert Behavior: calm, cooperative Psychomotor activity: Normal Eye Contact: Minimal Contact Mood Description: Euthymic/stable Affect description: congruent with mood, full range, flat Speech Volume: Normal, No variation in volume Speech pattern: normal rate, normal rhythm, fluent, spontaneous, monotone Language & Vocabulary: consistent with education Thought Process: Linear, Goal Oriented, Thought Blocking Thought Content: No Suicidal ideation, No Homicidal ideation, No Overt delusions Perceptual Disturbances: Yes Auditory hallucinations (occasionally significantly reduced), No Visual hallucinations Attention Span Ability: Capable of Focused Attention Memory Description: Grossly Intact Patient Reliability: Reliable Historian Fund of knowledge: Yes abstraction ability, Yes aware of current events Intelligence Estimate: Average Judgment: Limited Insight: Partial
--- NOTE | 2017-12-17 10:51 | Psychiatry Progress Note ---
Date of Encounter: 12/17/17 Time of Encounter: 10:05 Subjective Interval history: Pt is a 42 yo,, male, who presents for Schizophrenia. Pt noted that he feels "much better." Pt denied any thought to harm himself or anyone else. Pt denied any side effects to current medications. Pt noted he felt safe and comfortable on the unit, "I really feel good doc." Pt was in agreement with current treatment plan. Pt noted that he is doing alright today. Pt noted he slept very good 10 hours last night. Pt noted his appetite is good improving. Pt rated his depression a 0, on a scale of zero to ten with ten being the worst and zero being none. Pt rate his anxiety a 0, on the same scale. Pt denied any auditory or visiual hallucinations. Pt denied any current thoughts to harm himself or anyone else. No TD noted, AIMS=0 Tobacco: Denies any current Alcohol: Denies any current Street: Denies any current Caffeine: 2-3 drinks per day Pt denies any hx of HIV, Hep C, TBI or Seizures. 1.Interval hx 2.Continue current medications 3.Review current labs 4.Pt had an opportunity to ask questions and discuss current treatment plan. 5.Supportive therapy was provided 6.Pt encouraged to consider group or individual therapy 7.Pt was in agreement with treatment plan. 8.Pt was educated on the risks benefits and side effects of current medications. 9. Pt agreed to start Paliperidone 234 mg IM with follow up injection in 7 days of 156 mg IM and then return to Q28D 234 mg Paliperidone IM. 10. D/C Paliperidone PO after 156 injection in 7days 11. Coordinate for discharge home Review of Systems Constitutional: Denies: fever, chills, weakness, weight change Eyes: Denies: eye pain, vision change Ears, Nose, Throat: Denies: ear pain, throat pain, dental pain, hearing loss, co ngestion Cardiovascular: Denies: chest pain, palpitations, dyspnea on exertion Respiratory: Denies: cough, dyspnea, wheezes Gastrointestinal: Denies: abdominal pain, nausea, vomiting, diarrhea, constipation Musculoskeletal: Denies: joint swelling, joint pain Neurological: Denies: headache, weakness, numbness, memory loss Psychiatric: Reports: change in appetite, auditory hallucinations Results - Vital Signs Vital Signs: Temp Pulse Resp BP Pulse Ox 98.3 F 103 18 122/78 97 12/17/17 08:58 12/17/17 08:58 12/17/17 08:58 12/17/17 08:58 12/17/17 08:58 Assessment and Plan (1) Chronic schizophrenia Current visit: Yes Status: Chronic Plan: Continue hospitalization, Close observation, Suicide Precautions per unit protocol, Encourage participation in unit milieu, Group Therapy, Monitor sleep, Monitor appetite Risks, benefits, side effects, alternatives discussed w/pt: Yes Patient agreeable to treatment: Yes (2) Anorexia Current visit: Yes Status: Acute Plan: Continue hospitalization, Close observation, Suicide Precautions per unit protocol, Encourage participation in unit milieu, Group Therapy, Monitor sleep, Monitor appetite Risks, benefits, side effects, alternatives discussed w/pt: Yes Patient agreeable to treatment: Yes (3) Patient's noncompliance with other medical treatment and regimen Current visit: Yes Status: Acute Plan: Continue hospitalization, Close observation, Suicide Precautions per unit protocol, Encourage participation in unit milieu, Group Therapy, Monitor sleep, Monitor appetite Risks, benefits, side effects, alternatives discussed w/pt: Yes Patient agreeable to treatment: Yes Consult Discharge Plan - Plan Additional Instructions: Invega Sustenna 234mg given 12/15/2017. Invega Sustenna 156mg to be given 12/21/2017. Invega Sustenna 234mg due to be given again on 01/18/2018. Referrals: [place], [facility] [Other] (Dr. Dash will resume outpatient psychiatric assessment and medication management services for you monthly in your [facility]pc. You will also be seen by a nurse and clinical social work therapist in the home as needed.) Jose Guillen MD [Partnered Physician] - (Dr. Guillen will resume primary care services for you monthly in your fpc.) Psychiatry Exam - Constitutional Vitals: Temp Pulse Resp BP Pulse Ox 98.3 F 103 18 122/78 97 12/17/17 08:58 12/17/17 08:58 12/17/17 08:58 12/17/17 08:58 12/17/17 08:58 General appearance: age & developmentally appropriate, well-groomed, well- nourished - Musculoskeletal Gait: normal Station: relaxed Strength & Tone: normal for patient - Psychiatric Patient Orientation: Yes Person, Yes Time, Yes Place Level of alertness: Alert Behavior: calm, cooperative Psychomotor activity: Normal Eye Contact: Maintains Eye Contact Mood Description: Euthymic/stable Affect description: congruent with mood, full range Speech Volume: Normal Speech pattern: normal rate, normal rhythm, fluent, spontaneous, monotone Language & Vocabulary: consistent with education Thought Process: Linear, Goal Oriented, Thought Blocking, [place] Thought Content: No Suicidal ideation, No Homicidal ideation, No Overt delusions Perceptual Disturbances: No Auditory hallucinations, No Visual hallucinations Attention Span Ability: Capable of Focused Attention Memory Description: Grossly Intact Patient Reliability: Reliable Historian Fund of knowledge: Yes abstraction ability, Yes aware of current events Intelligence Estimate: Average Judgment: Limited Insight: Partial
--- NOTE | 2017-12-18 09:41 | Electrocardiograph Report ---
[address] [address] Test Date: 2017-12-11 Pat Name: Mathew Alaniz Department: 101 Room: 1A Gender: M Pricer Bagger: : 1975 Requested By: Gordon Perez Order Number: [id number] Reading MD: Alfredo Santos Measurements Intervals [place] Rate: 78 P: 57 NM: 184 QRS: 72 QRSD: 81 T: 64 QT: 350 QTc: 384 Interpretive Statements SINUS RHYTHM Electronically Signed On 12-18-2017 9:39:46 EDT by Alfredo Santos
--- NOTE | 2017-12-18 10:16 | Psychiatry Progress Note ---
Date of Encounter: 12/18/17 Time of Encounter: 09:45 Subjective Interval history: Pt is a 42 yo,, male, who presents for Schizophrenia. Pt noted that he feels "better....just scared to go back to the correction." Pt denied any thought to harm himself or anyone else. Pt denied any side effects to current medications. Pt noted he felt safe and comfortable on the unit, "I stil feel good." Pt was in agreement with current treatment plan. Pt noted that he is doing alright today. Pt noted he slept about 8 hours last night. Pt noted his appetite is good improving. Pt rated his depression a 0, on a scale of zero to ten with ten being the worst and zero being none. Pt rate his anxiety a 0, on the same scale. Pt denied any auditory or visiual hallucinations. Pt denied any current thoughts to harm himself or anyone else. No TD noted, AIMS=0 Tobacco: Denies any current Alcohol: Denies any current Street: Denies any current Caffeine: 2-3 drinks per day Pt denies any hx of HIV, Hep C, TBI or Seizures. 1.Interval hx 2.Continue current medications 3.Review current labs 4.Pt had an opportunity to ask questions and discuss current treatment plan. 5.Supportive therapy was provided 6.Pt encouraged to consider group or individual therapy 7.Pt was in agreement with treatment plan. 8.Pt was educated on the risks benefits and side effects of current medications. 9. Pt agreed to start Paliperidone 234 mg IM with follow up injection in 7 days of 156 mg IM and then return to Q28D 234 mg Paliperidone IM. 10. D/C Paliperidone PO after 156 injection in 7days 11. Coordinate for discharge home thursday Review of Systems Constitutional: Denies: fever, chills, weakness, weight change Eyes: Denies: eye pain, vision change Ears, Nose, Throat: Denies: ear pain, throat pain, dental pain, hearing loss, congestion Cardiovascular: Denies: chest pain, palpitations, dyspnea on exertion Respiratory: Denies: cough, dyspnea, wheezes Gastrointestinal: Denies: abdominal pain, nausea, vomiting, diarrhea, constipation Musculoskeletal: Denies: joint swelling, joint pain Neurological: Denies: headache, weakness, numbness, memory loss Psychiatric: Reports: change in appetite, auditory hallucinations Results - Vital Signs Vital Signs: Temp Pulse Resp BP Pulse Ox 97.9 F 73 22 108/65 100 12/18/17 09:00 12/18/17 09:00 12/18/17 09:00 12/18/17 09:00 12/18/17 09:00 Assessment and Plan (1) Chronic schizophrenia Current visit: Yes Status: Chronic Plan: Continue hospitalization, Close observation, Suicide Precautions per unit protocol, Encourage participation in unit milieu, Group Therapy, Monitor sleep, Monitor appetite Risks, benefits, side effects, alternatives discussed w/pt: Yes Patient agreeable to treatment: Yes (2) Anorexia Current visit: Yes Status: Acute Plan: Continue hospitalization, Close observation, Suicide Precautions per unit protocol, Encourage participation in unit milieu, Group Therapy, Monitor sleep, Monitor appetite Risks, benefits, side effects, alternatives discussed w/pt: Yes Patient agreeable to treatment: Yes (3) Patient's noncompliance with other medical treatment and regimen Current visit: Yes Status: Acute Plan: Continue hospitalization, Close observation, Suicide Precautions per unit protocol, Encourage participation in unit milieu, Group Therapy, Monitor sleep, Monitor appetite Risks, benefits, side effects, alternatives discussed w/pt: Yes Patient agreeable to treatment: Yes Consult Discharge Plan - Plan Additional Instructions: Invega Sustenna 234mg given 12/15/2017. Invega Sustenna 156mg to be given 12/21/2017. Invega Sustenna 234mg due to be given again on 01/18/2018. Referrals: [place], Mental [facility] [Other] (Dr. Dash will resume outpatient psychiatric assessment and medication management services for in your correction. You will also be seen by a family preservation caseworker and healthcare social worker in the home as well.) Jose Guillen MD [Partnered Physician] - (Dr. Guillen will resume primary healthcare services for you in your correction.) Psychiatry Exam - Constitutional Vitals: Temp Pulse Resp BP Pulse Ox 97.9 F 73 22 108/65 100 12/18/17 09:00 12/18/17 09:00 12/18/17 09:00 12/18/17 09:00 12/18/17 09:00 General appearance: age & developmentally appropriate, well-groomed, well- nourished - Musculoskeletal Gait: normal Station: relaxed Strength & Tone: normal for patient - Psychiatric Patient Orientation: Yes Person, Yes Time, Yes Place Level of alertness: Alert Behavior: calm, cooperative Psychomotor activity: Normal Eye Contact: Maintains Eye Contact Mood Description: Euthymic/stable Affect description: congruent with mood, full range Speech Volume: Normal Speech pattern: normal rate, normal rhythm, normal tone, fluent, spontaneous Language & Vocabulary: consistent with education Thought Process: Linear, Goal Oriented Thought Content: No Suicidal ideation, No Homicidal ideation, No Overt delusions Perceptual Disturbances: No Auditory hallucinations, No Visual hallucinations Attention Span Ability: Capable of Focused Attention Memory Description: Grossly Intact Patient Reliability: Reliable Historian Fund of knowledge: Yes abstraction ability, Yes aware of current events Intelligence Estimate: Average Judgment: Limited Insight: Partial
--- NOTE | 2017-12-19 11:07 | Psychiatry Progress Note ---
Date of Encounter: 12/19/17 Time of Encounter: 11:04 Subjective Interval history: Client doing better. Able to eat more. Denies having much of an appetite but staff report he is eating the majority of most of his meals now. Client still experiencing AH but he reports the hallucinations are now more thoughts than voices outside his head. Still finds them intrusive but reports they are at least letting him eat some. Reports voices made him refuse his medications earlier this week. He has been compliant today. Now on Invega Sustenna which will help with compliance. Plan is for repeat injection on Thursday with discharge back to senior living. Review of Systems Constitutional: Denies: fever, chills, weakness, weight change Eyes: Denies: eye pain, vision change Ears, Nose, Throat: Denies: ear pain, throat pain, dental pain, hearing loss, congestion Cardiovascular: Denies: chest pain, palpitations, dyspnea on exertion Respiratory: Denies: cough, dyspnea, wheezes Gastrointestinal: Denies: abdominal pain, nausea, vomiting, diarrhea, constipation Musculoskeletal: Denies: joint swelling, joint pain Neurological: Denies: headache, weakness, numbness, memory loss Psychiatric: Reports: change in appetite, auditory hallucinations Results - Vital Signs Vital Signs: Temp Pulse Resp BP Pulse Ox 97.9 F 130 18 112/70 94 12/19/17 09:00 12/19/17 09:00 12/19/17 09:00 12/19/17 09:00 12/18/17 20:36 Assessment and Plan (1) Paranoid schizophrenia Current visit: Yes Status: Acute Plan: Continue hospitalization, Close observation, Suicide Precautions per unit protocol, Encourage participation in unit milieu, Group Therapy, Monitor sleep, Monitor appetite Risks, benefits, side effects, alternatives discussed w/pt: No Patient agreeable to treatment: No Consult Discharge Plan - Plan Additional Instructions: Invega Sustenna 234mg given 12/15/2017. Invega Sustenna 156mg to be given 12/21/2017. Invega Sustenna 234mg due to be given again on 01/18/2018. Referrals: [place], Mental [facility] [Other] (Dr. Dash will resume outpatient psychiatric assessment and medication management services for in your senior living. Dr. Dash will see you within 4 weeks of your return to the senior living. You will also resume case management and psychiatric social worker services in the home as well.) Jose Guillen MD [Partnered Physician] - (Dr. Guillen will resume primary healthcare services for you in your senior living. Dr. Guillen will see you within 4 weeks of your return to the senior living.) Psychiatry Exam - Constitutional Vitals: Temp Pulse Resp BP Pulse Ox 97.9 F 130 18 112/70 94 12/19/17 09:00 12/19/17 09:00 12/19/17 09:00 12/19/17 09:00 12/18/17 20:36 General appearance: thin - Musculoskeletal Gait: normal Station: relaxed Strength & Tone: normal for patient - Psychiatric Patient Orientation: Yes Person, Yes Time, Yes Place Level of alertness: Alert Behavior: calm, cooperative Psychomotor activity: Normal Eye Contact: Maintains Eye Contact Mood Description: Anxious Affect description: congruent with mood Speech Volume: Normal Speech pattern: normal rate, normal rhythm, normal tone, fluent, spontaneous Language & Vocabulary: consistent with education Thought Process: Linear Thought Content: No Suicidal ideation, No Homicidal ideation, No Overt delusions Perceptual Disturbances: Yes Auditory hallucinations Attention Span Ability: Capable of Focused Attention Memory Description: Grossly Intact Patient Reliability: Reliable Historian Fund of knowledge: Yes abstraction ability, Yes aware of current events Intelligence Estimate: Average Judgment: Limited Insight: Partial
--- NOTE | 2017-12-20 09:25 | Psychiatry Progress Note ---
Date of Encounter: 12/20/17 Time of Encounter: 09:21 Subjective Interval history: Still has AH that get in the way of him taking care of himself. Did not eat breakfast this morning and voices are telling him he can't eat until Thursday. Tried to refuse meds last night. Cooperative with meds on the fifth prompt. When asked about it this morning client reported the voices would not let him take his meds until asked five times. Very pleasant. Very cooperative. However, he has a hard time resisting the voices and staff at his discharge housing will need to be patient with him. Encouraged client to eat today and he said he would try. Client also reported he finds the medications helpful. States his overall morale is better. Wants to stay on meds but knows it will be a santo resisting his hallucinations. Long acting Sustenna injection will help. Review of Systems Constitutional: Denies: fever, chills, weakness, weight change Eyes: Denies: eye pain, vision change Ears, Nose, Throat: Denies: ear pain, throat pain, dental pain, hearing loss, congestion Cardiovascular: Denies: chest pain, palpitations, dyspnea on exertion Respiratory: Denies: cough, dyspnea, wheezes Gastrointestinal: Denies: abdominal pain, nausea, vomiting, diarrhea, constipation Musculoskeletal: Denies: joint swelling, joint pain Neurological: Denies: headache, weakness, numbness, memory loss Psychiatric: Reports: change in appetite, auditory hallucinations Results - Vital Signs Vital Signs: Temp Pulse Resp BP Pulse Ox 98.1 F 119 17 91/52 94 12/20/17 08:20 12/20/17 08:20 12/20/17 08:20 12/20/17 08:20 12/18/17 20:36 Assessment and Plan (1) Paranoid schizophrenia Current visit: Yes Status: Acute Plan: Continue hospitalization, Close observation, Suicide Precautions per unit protocol, Encourage participation in unit milieu, Group Therapy, Monitor sleep, Monitor appetite Risks, benefits, side effects, alternatives discussed w/pt: No Patient agreeable to treatment: No Consult Discharge Plan - Plan Additional Instructions: Invega Sustenna 234mg given 12/15/2017. Invega Sustenna 156mg to be given 12/21/2017. Invega Sustenna 234mg due to be given again on 01/18/2018. Referrals: [place], Mental Health [Other] (Dr. Dash will resume outpatient psychiatric assessment and medication management services for in your care home. Dr. Dash will see you within 4 weeks of your return to the care home. You will also resume case management and social media specialist services in the home as well.) Jose Guillen MD [Partnered Physician] - (Dr. Guillen will resume primary healthcare services for you in your care home. Dr. Guillen will see you within 4 weeks of your return to the care home.) Psychiatry Exam - Constitutional Vitals: Temp Pulse Resp BP Pulse Ox 98.1 F 119 17 91/52 94 12/20/17 08:20 12/20/17 08:20 12/20/17 08:20 12/20/17 08:20 12/18/17 20:36 General appearance: thin - Musculoskeletal Gait: normal Station: relaxed Strength & Tone: normal for patient - Psychiatric Patient Orientation: Yes Person, Yes Time, Yes Place Level of alertness: Alert Behavior: calm, cooperative Psychomotor activity: Normal Eye Contact: Maintains Eye Contact Mood Description: Anxious Affect description: congruent with mood Speech Volume: Normal Speech pattern: normal rate, normal rhythm, normal tone, fluent, spontaneous Language & Vocabulary: consistent with education Thought Process: Linear Thought Content: No Suicidal ideation, No Homicidal ideation, No Overt delusions Perceptual Disturbances: Yes Auditory hallucinations Attention Span Ability: Capable of Focused Attention Memory Description: Grossly Intact Patient Reliability: Reliable Historian Fund of knowledge: Yes abstraction ability, Yes aware of current events Intelligence Estimate: Average Judgment: Limited Insight: Partial
[2017-12-21] MEDS ORDERED: (Paliperidone Palmitate [Invega Sustenna] 156 MG) IM ONE (13:30)
--- NOTE | 2017-12-21 17:03 | Psychiatry Progress Note ---
Date of Encounter: 12/21/17 Time of Encounter: 15:30 Subjective Interval history: This is first time this patient had been seen by this provider. He was admitted with auditory and visual hallucinations. Pt. had stopped eating due to voices he was hearing telling not to eat until Thursday. He had an initial injection of Invega Sustenna 234mg and today received his second injection of 156mg today. He notices some improvement already. He states that he will try to eat even though the voices tell him not to. Patient slept well last night. Pt. appears guarded with limited eye contact. He denies Suicidal/homicidal ideation. Review of Systems Constitutional: Denies: fever, chills, weakness, weight change Eyes: Denies: eye pain, vision change Ears, Nose, Throat: Denies: ear pain, throat pain, dental pain, hearing loss, congestion Cardiovascular: Denies: chest pain, palpitations, dyspnea on exertion Respiratory: Denies: cough, dyspnea, wheezes Gastrointestinal: Denies: abdominal pain, nausea, vomiting, diarrhea, constipation Musculoskeletal: Denies: joint swelling, joint pain Neurological: Denies: headache, weakness, numbness, memory loss Psychiatric: Reports: change in appetite, auditory hallucinations Results - Vital Signs Vital Signs: Temp Pulse Resp BP Pulse Ox 97.1 F L 137 20 94/62 99 12/21/17 09:00 12/21/17 09:00 12/21/17 09:00 12/21/17 09:00 12/21/17 09:00 Assessment and Plan (1) Paranoid schizophrenia Current visit: Yes Status: Acute Plan: Continue hospitalization, Monitor appetite Additional Plan: Engage patient's father in securing external resources for his care as patient's father is elderly Risks, benefits, side effects, alternatives discussed w/pt: Yes Patient agreeable to treatment: Yes (2) Anorexia Current visit: Yes Status: Acute Plan: Continue hospitalization, Monitor appetite Risks, benefits, side effects, alternatives discussed w/pt: Yes Patient agreeable to treatment: Yes Consult Discharge Plan - Plan Additional Instructions: Invega Sustenna 234mg given 12/15/2017. Invega Sustenna 156mg to be given 12/21/2017. Invega Sustenna 234mg due to be given again on 01/18/2018. Referrals: [place], Mental [facility] [Other] (Dr. Dash will resume outpatient psychiatric assessment and medication management services for in your [facility]. Dr. Dash will see you within 4 weeks of your return to the usp. You will also resume case management and transition social worker services in the home as well.) Jose Guillen MD [Partnered Physician] - (Dr. Guillen will resume primary a lthcare services for you in your usp. Dr. Guillen will see you within 4 weeks of your return to the usp.) Psychiatry Exam - Constitutional Vitals: Temp Pulse Resp BP Pulse Ox 97.1 F L 137 20 94/62 99 12/21/17 09:00 12/21/17 09:00 12/21/17 09:00 12/21/17 09:00 12/21/17 09:00 General appearance: age & developmentally appropriate, well-groomed, well- nourished - Musculoskeletal Gait: normal Station: relaxed Strength & Tone: normal for patient - Psychiatric Patient Orientation: Yes Person, Yes Time, Yes Place Level of alertness: Alert Behavior: guarded, suspicious, withdrawn Psychomotor activity: Normal Eye Contact: Fleeting Contact Mood Description: Euthymic/stable Patient description of mood: Patient denies feeling depressed Affect description: blunted Speech Volume: Normal Speech pattern: normal rate, normal rhythm, normal tone, fluent, spontaneous Language & Vocabulary: consistent with education Thought Process: Circumstantial, Tangential Thought Content: Yes Overt delusions, Yes Ideas of reference Perceptual Disturbances: Yes Auditory hallucinations, Yes Visual hallucinations Attention Span Ability: Capable of Focused Attention Memory Description: Grossly Intact Patient Reliability: Reliable Historian Fund of knowledge: Yes abstraction ability, Yes aware of current events Intelligence Estimate: Above [place] Judgment: Poor Insight: Partial
--- NOTE | 2017-12-22 14:53 | Psychiatry Progress Note ---
Date of Encounter: 12/22/17 Time of Encounter: 12:25 Subjective Interval history: Patient received his second injection of Invega Sustenna 156mg/IM yesterday. Patient has continued on his oral Invega. Patient states today that he feels better. He still hears the voices telling him not to eat or bath, but they are "deeper" and not as threatening to him. He notes that it took him a long time this morning to bathe and dress because he did not feel motivated. Las night he ate about 40% of his dinner with encouragement from staff. Today he states that he ate his breakfast and his lunch. He states he slept well. He denies suicidal or homicidal ideation. After seeing paatient the probate hearing was held. The court ruled for forced medication and a full hearing meaning that if the patient is not discharged within 30 days another hearing would occur for continued care. Patient attended the hearing and was appropriate and attentive. Review of Systems Constitutional: Denies: fever, chills, weakness, weight change Eyes: Denies: eye pain, vision change Ears, Nose, Throat: Denies: ear pain, throat pain, dental pain, hearing loss, congestion Cardiovascular: Denies: chest pain, palpitations, dyspnea on exertion Respiratory: Denies: cough, dyspnea, wheezes Gastrointestinal: Denies: abdominal pain, nausea, vomiting, diarrhea, constipation Musculoskeletal: Denies: joint swelling, joint pain Neurological: Denies: headache, weakness, numbness, memory loss Psychiatric: Reports: change in appetite, auditory hallucinations Results - Vital Signs Vital Signs: Temp Pulse Resp BP Pulse Ox 97.4 F L 104 20 93/64 82 12/22/17 08:56 12/22/17 08:56 12/22/17 08:56 12/22/17 08:56 12/22/17 08:56 - Impressions patient has some mild improvement today with his command hallucinations less threatening. He was able to eat breakfast and lunch per patient report. Patient tolerating second injection of INvega Sustenna without Side effects. Pt. does ddisplay some anxiety, although yesterday there was some depression present. Assessment and Plan (1) Paranoid schizophrenia Current visit: Yes Status: Acute Plan: Continue hospitalization, Close observation, Suicide Precautions per unit protocol, Encourage participation in unit milieu, Group Therapy, Monitor sleep, Monitor appetite Additional Plan: Court hearing approved forced medication. Risks, benefits, side effects, alternatives discussed w/pt: Yes Patient agreeable to treatment: Yes (2) Anorexia Current visit: Yes Status: Acute Plan: Continue hospitalization, Close observation, Suicide Precautions per unit protocol, Encourage participation in unit milieu, Group Therapy, Monitor sleep, Monitor appetite Additional Plan: Encourage patient to eat at mealtimes. Risks, benefits, side effects, alternatives discussed w/pt: Yes Patient agreeable to treatment: Yes Consult Discharge Plan - Plan Additional Instructions: Invega Sustenna 234mg given 12/15/2017. Invega Sustenna 156mg to be given 12/21/2017. Invega Sustenna 234mg due to be given again on 01/18/2018. Referrals: [place], [facility] [Other] (Dr. Dash will resume outpatient psychiatric assessment and medication management services for in your custodial. Dr. Dash will see you within 4 weeks of your return to the custodial. You will also resume case management and social media marketer services in the home as well.) Jose Guillen MD [Partnered Physician] - (Dr. Guillne will resume primary healthcare services for you in your custodial. Dr. Guillen will see you within 4 weeks of your return to the custodial.) Psychiatry Exam - Constitutional Vitals: Temp Pulse Resp BP Pulse Ox 97.4 F L 104 20 93/64 82 12/22/17 08:56 12/22/17 08:56 12/22/17 08:56 12/22/17 08:56 12/22/17 08:56 General appearance: age & developmentally appropriate, well-groomed, well- nourished - Musculoskeletal Gait: normal Station: relaxed Strength & Tone: normal for patient - Psychiatric Patient Orientation: Yes Person, Yes Time, Yes Place Level of alertness: Alert Behavior: anxious Psychomotor activity: Normal Eye Contact: Maintains Eye Contact Mood Description: Anxious Patient description of mood: Patient describes mood as happy, but has some anxiety about the voices Affect description: blunted Speech Volume: Normal Speech pattern: normal rate, normal rhythm, normal tone, fluent, spontaneous Language & Vocabulary: consistent with education Thought Process: Tangential, Thought Blocking Thought Content: Yes Ideas of reference, Yes Paranoid delusion, Yes Grandiose delusion, Yes Obsessive thoughts Perceptual Disturbances: Yes Auditory hallucinations Attention Span Ability: Capable of Focused Attention Memory Description: Grossly Intact Patient Reliability: Reliable Historian Fund of knowledge: Yes abstraction ability, Yes aware of current events Intelligence Estimate: Above [place] Judgment: Limited Insight: Partial
--- NOTE | 2017-12-23 08:47 | Psychiatry Progress Note ---
Date of Encounter: 12/23/17 Time of Encounter: 08:15 Subjective Interval history: Patient presents today in improved mood. He is weraing his scruybs and is clean and mostly neat, although his mckeon needs some trimming.He has eaten at least 60% of his breakfast on his own without prompting. Patient states that the voices are much subdued. States that he slept well and did not feel tired and lacking motivation to get his shower and dress. Discussed with patient the probate hearing yesterday and he understands that the results from that are his staying in the hospital till maximal benefit is achieved which is eating and maintaining his nourishment on hsis own, compliance with his meds and ability to carry out his ADL's. Patient seems agreeable to this and indicates he want to achieve this too. Patient denies suicidal/homicidal ideation, intent or plan. Review of Systems Constitutional: Denies: fever, chills, weakness, weight change Eyes: Denies: eye pain, vision change Ears, Nose, Throat: Denies: ear pain, throat pain, dental pain, hearing loss, congestion Cardiovascular: Denies: chest pain, palpitations, dyspnea on exertion Respiratory: Denies: cough, dyspnea, wheezes Gastrointestinal: Denies: abdominal pain, nausea, vomiting, diarrhea, constipation Musculoskeletal: Denies: joint swelling, joint pain Neurological: Denies: headache, weakness, numbness, memory loss Psychiatric: Reports: depression, anxiety, change in appetite, auditory hallucinations Results - Vital Signs Vital Signs: Temp Pulse Resp BP Pulse Ox 98.9 F 102 20 113/75 99 12/22/17 20:02 12/22/17 20:02 12/22/17 20:02 12/22/17 20:02 12/22/17 20:02 Assessment and Plan (1) Paranoid schizophrenia Current visit: Yes Status: Acute Additional Plan: Continue Invega oral and will start taper tomorrow, since it has been a week since initiation dose. Risks, benefits, side effects, alternatives discussed w/pt: Yes Patient agreeable to treatment: Yes (2) Anorexia Current visit: Yes Status: Acute Risks, benefits, side effects, alternatives discussed w/pt: Yes Patient agreeable to treatment: Yes Consult Discharge Plan - Plan Additional Instructions: Invega Sustenna 234mg given 12/15/2017. Invega Sustenna 156mg given 12/21/2017. Invega Sustenna 234mg due to be given again on 01/18/2018. Referrals: [place], Mental Health [Other] (Dr. Dash will resume outpatient psychiatric assessment and medication management services for in your half-way. Dr. Dash will see you within 4 weeks of your return to the half-way. You will also resume case management and neon sign worker services in the home as well.) Jose Guillen MD [Partnered Physician] - (Dr. Guillen will resume primary healthcare services for you in your half-way. Dr. Guillen will see you within 4 weeks of your return to the half-way.) Psychiatry Exam - Constitutional Vitals: Temp Pulse Resp BP Pulse Ox 98.9 F 102 20 113/75 99 12/22/17 20:02 12/22/17 20:02 12/22/17 20:02 12/22/17 20:02 12/22/17 20:02 General appearance: age & developmentally appropriate, well-groomed, well- nourished - Musculoskeletal Gait: normal Station: relaxed Strength & Tone: normal for patient - Psychiatric Patient Orientation: Yes Person, Yes Time, Yes Place Level of alertness: Alert Behavior: calm, guarded Psychomotor activity: Normal Eye Contact: Maintains Eye Contact Mood Description: Anxious Affect description: blunted Speech Volume: Normal Speech pattern: normal rate, normal rhythm, normal tone, fluent, spontaneous Language & Vocabulary: consistent with education Thought Process: Tangential, Thought Blocking Thought Content: Yes Ideas of reference, Yes Paranoid delusion Perceptual Disturbances: Yes Auditory hallucinations, No Visual hallucinations Attention Span Ability: Capable of Focused Attention Memory Description: Grossly Intact Patient Reliability: Reliable Historian Fund of knowledge: Yes abstraction ability, Yes aware of current events Intelligence Estimate: Above [place] Judgment: Limited Insight: Partial
--- NOTE | 2017-12-24 15:08 | Psychiatry Progress Note ---
Date of Encounter: 12/24/17 Time of Encounter: 12:30 Subjective Interval history: Patient in bed on rounds, although he had been up for breakfast and lunch earlier. Patient states that the voices have come back , but not as badly. The voices are again telling him not to eat. Patient reports that he feels tired, but was able to take a long shower. Patient is worried about the color of his hands. He mentions that his face had had some brown streaks in the past. Patient report sleeping well, denies SI/HI intent or plan. Patient cooperative and pleasant. Will need to determine if patient will need a higher maintenance dose due to break through psychosis, or will have residual symptoms. This patient should be considered for Clozapine treatment if it has not been tried in the past. That may be his best option for reaching maximal benefit from an antipsychotic. Review of Systems Constitutional: Denies: fever, chills, weakness, weight change Eyes: Denies: eye pain, vision change Ears, Nose, Throat: Denies: ear pain, throat pain, dental pain, hearing loss, congestion Cardiovascular: Denies: chest pain, palpitations, dyspnea on exertion Respiratory: Denies: cough, dyspnea, wheezes Gastrointestinal: Denies: abdominal pain, nausea, vomiting, diarrhea, constipation Musculoskeletal: Denies: joint swelling, joint pain Neurological: Denies: headache, weakness, numbness, memory loss Psychiatric: Reports: depression, anxiety, change in appetite, auditory hallucinations Results - Vital Signs Vital Signs: Temp Pulse Resp BP Pulse Ox 97.3 F L 103 16 100/68 96 12/24/17 08:29 12/24/17 08:29 12/24/17 08:29 12/24/17 08:29 12/24/17 08:29 - Impressions Labs WNL Assessment and Plan (1) Paranoid schizophrenia Current visit: Yes Status: Acute Plan: Continue hospitalization, Close observation, Suicide Precautions per unit protocol, Encourage participation in unit milieu, Group Therapy, Monitor sleep, Monitor appetite Additional Plan: Consider a higher dose of INvega Sustenna if patient continues to have psychotic symptoms Risks, benefits, side effects, alternatives discussed w/pt: Yes Patient agreeable to treatment: Yes (2) Anorexia Current visit: Yes Status: Acute Plan: Continue hospitalization, Close observation, Suicide Precautions per unit protocol, Encourage participation in unit milieu, Group Therapy, Monitor sleep, Monitor appetite Additional Plan: Encourage patient to eat at mealtimes. Risks, benefits, side effects, alternatives discussed w/pt: Yes Patient agreeable to treatment: Yes Consult Discharge Plan - Plan Additional Instructions: Invega Sustenna 234mg given 12/15/2017. Invega Sustenna 156mg given 12/21/2017. Invega Sustenna 234mg due to be given again on 01/18/2018. Referrals: [place], Mental Health [Other] (Dr. Dash will resume outpatient psychiatric assessment and medication management services for in your long term. Dr. Dash will see you within 4 weeks of your return to the long term. You will also resume case management and social work coordinator services in the home as well.) Jose Guillen MD [Partnered Physician] - (Dr. Guillen will resume primary healthcare services for you in your long term. Dr. Guillen will see you within 4 weeks of your return to the long term.) Psychiatry Exam - Constitutional Vitals: Temp Pulse Resp BP Pulse Ox 97.3 F L 103 16 100/68 96 12/24/17 08:29 12/24/17 08:29 12/24/17 08:29 12/24/17 08:29 12/24/17 08:29 General appearance: age & developmentally appropriate, well-groomed, well- nourished - Musculoskeletal Gait: normal Station: relaxed Strength & Tone: normal for patient - Psychiatric Patient Orientation: Yes Person, Yes Time, Yes Place Level of alertness: Alert Behavior: calm, cooperative, guarded Psychomotor activity: Normal Eye Contact: Maintains Eye Contact Mood Description: Depressed, Anxious Patient description of mood: worried Affect description: blunted Speech Volume: Normal Speech pattern: normal rate, normal rhythm, normal tone, fluent, spontaneous Language & Vocabulary: consistent with education Thought Process: Logical, Linear, Goal Oriented Thought Content: Yes Ideas of reference Perceptual Disturbances: Yes Auditory hallucinations Attention Span Ability: Capable of Focused Attention Memory Description: Grossly Intact Patient Reliability: Reliable Historian Fund of knowledge: Yes abstraction ability, Yes aware of current events Intelligence Estimate: Above [place] Judgment: Limited Insight: Partial
--- NOTE | 2017-12-25 16:21 | Psychiatry Progress Note ---
Date of Encounter: 12/25/17 Time of Encounter: 13:00 Subjective Interval history: Patient states that he is hearing the voices again telling him not to eat. He did not eat all of his meals consequently. Patient states that his sleep is good. Patient has constricted affect. Patient's oral Invega was reduced from 9mg/d to 6mg/d when he received his second injection of Invega earlier this week. Patient having increased symptoms since the decrease. Patient participating on unit, but still wants to isolate. He remains concerned about his condition and what needs to happen for him to be discharged. Review of Systems Constitutional: Denies: fever, chills, weakness, weight change Eyes: Denies: eye pain, vision change Ears, Nose, Throat: Denies: ear pain, throat pain, dental pain, hearing loss, c ongestion Cardiovascular: Denies: chest pain, palpitations, dyspnea on exertion Respiratory: Denies: cough, dyspnea, wheezes Gastrointestinal: Denies: abdominal pain, nausea, vomiting, diarrhea, constipation Musculoskeletal: Denies: joint swelling, joint pain Neurological: Denies: headache, weakness, numbness, memory loss Psychiatric: Reports: depression, anxiety, change in appetite, auditory hallucinations Results - Vital Signs Vital Signs: Temp Pulse Resp BP Pulse Ox 97.9 F 91 18 103/69 97 12/25/17 09:00 12/25/17 09:00 12/25/17 09:00 12/25/17 09:00 12/25/17 09:00 - Labs Labs: lipids, glucose WNL Assessment and Plan (1) Paranoid schizophrenia Current visit: Yes Status: Acute Plan: Continue hospitalization, Close observation, Suicide Precautions per unit protocol, Encourage participation in unit milieu, Group Therapy, Monitor sleep, Monitor appetite Additional Plan: Increase oral Invega back to 9mg/hs for iincreasing psychotic symptoms Risks, benefits, side effects, alternatives discussed w/pt: Yes Patient agreeable to treatment: Yes (2) Anorexia Current visit: Yes Status: Acute Plan: Continue hospitalization, Close observation, Suicide Precautions per unit protocol, Encourage participation in unit milieu, Group Therapy, Monitor sleep, Monitor appetite Additional Plan: Continue to encourage patient to eat and try to ignore voices Risks, benefits, side effects, alternatives discussed w/pt: Yes Patient agreeable to treatment: Yes Consult Discharge Plan - Plan Additional Instructions: Invega Sustenna 234mg given 12/15/2017. Invega Sustenna 156mg given 12/21/2017. Invega Sustenna 234mg due to be given again on 01/18/2018. Referrals: [place], Mental Health [Other] (Dr. Dash will resume outpatient psychiatric assessment and medication management services for in your halfway. Dr. Dash will see you within 4 weeks of your return to the halfway. You will also resume case management and renal social worker services in the home as well.) Jose Guillen MD [Partnered Physician] - (Dr. Guillen will resume primary healthcare services for you in your halfway. Dr. Guillen will see you within 4 weeks of your return to the halfway.) Psychiatry Exam - Constitutional Vitals: Temp Pulse Resp BP Pulse Ox 97.9 F 91 18 103/69 97 12/25/17 09:00 12/25/17 09:00 12/25/17 09:00 12/25/17 09:00 12/25/17 09:00 General appearance: age & developmentally appropriate, well-groomed, well- nourished - Musculoskeletal Gait: normal Station: relaxed Strength & Tone: normal for patient - Psychiatric Patient Orientation: Yes Person, Yes Time, Yes Place Level of alertness: Alert Behavior: anxious, guarded Psychomotor activity: Normal Eye Contact: Maintains Eye Contact Mood Description: Depressed, Anxious Affect description: blunted Speech Volume: Normal Speech pattern: normal rate, normal rhythm, normal tone, fluent, spontaneous Language & Vocabulary: consistent with education Thought Process: Linear, Goal Oriented Thought Content: Yes Ideas of reference, Yes Paranoid delusion Perceptual Disturbances: No Auditory hallucinations, No Visual hallucinations Attention Span Ability: Capable of Focused Attention Memory Description: Grossly Intact Patient Reliability: Reliable Historian Fund of knowledge: Yes abstraction ability, Yes aware of current events Intelligence Estimate: Above Avergage Judgment: Fair Insight: Partial
--- NOTE | 2017-12-26 21:12 | Psychiatry Progress Note ---
Date of Encounter: 12/26/17 Time of Encounter: 20:00 Subjective Interval history: Mathew is a 42-year-old male with schizophrenia and anorexia seen today for follow-up. Previous notes reviewed and patient discussed with treatment team. Patient reports he feels he is doing a little bit better. He continues to struggle with whether or not he should be eating but review of chart indicates patient has been eating about 75% of his meals for the last 2 meals. Patient feels that this is a normal amount of food for him. He reports that the voices have decreased over the past couple of days. He states he is sleeping well. He denies suicidal or homicidal ideation, intent, or plan. He is still slightly paranoid when discussing food and food intake with staff. Patient states he does not like to interact much and mainly stays in his room. Review of Systems Psychiatric: Reports: depression, anxiety, change in appetite, auditory hallucinations Results - Vital Signs Vital Signs: Temp Pulse Resp BP Pulse Ox 97.6 F 78 18 114/74 99 12/26/17 19:28 12/26/17 19:28 12/26/17 19:28 12/26/17 19:28 12/26/17 19:28 Assessment and Plan (1) Paranoid schizophrenia Current visit: Yes Status: Acute Plan: Continue hospitalization, Close observation, Suicide Precautions per unit protocol, Encourage participation in unit milieu, Group Therapy, Monitor sleep, Monitor appetite Additional Plan: Patient improving slowly although still very paranoid about food. Food intake has been better today. We will continue current dosages of meds as Invega was just increased. Risks, benefits, side effects, alternatives discussed w/pt: Yes Patient agreeable to treatment: Yes (2) Anorexia Current visit: Yes Status: Acute Plan: Continue hospitalization, Close observation, Suicide Precautions per unit protocol, Encourage participation in unit milieu, Group Therapy, Monitor sleep, Monitor appetite Additional Plan: Encourage patient to continue by mouth intake. Risks, benefits, side effects, alternatives discussed w/pt: Yes Patient agreeable to treatment: Yes Consult Discharge Plan - Plan Additional Instructions: Invega Sustenna 234mg given 12/15/2017. Invega Sustenna 156mg given 12/21/2017. Invega Sustenna 234mg due to be given again on 01/18/2018. Referrals: [place], Mental Health [Other] (Dr. Dash will resume outpatient psychiatric assessment and medication management services for in your senior living. Dr. Dash will see you within 4 weeks of your return to the senior living. You will also resume case management and health social work professor services in the home as well.) Jsoe Guillen MD [Partnered Physician] - (Dr. Guillen will resume primary healthcare services for you in your senior living. Dr. Guillen will see you within 4 weeks of your return to the senior living.) Psychiatry Exam - Constitutional Vitals: Temp Pulse Resp BP Pulse Ox 97.6 F 78 18 114/74 99 12/26/17 19:28 12/26/17 19:28 12/26/17 19:28 12/26/17 19:28 12/26/17 19:28 General appearance: unkempt - Musculoskeletal Gait: slow Station: stooped Strength & Tone: normal for patient - Psychiatric Patient Orientation: Yes Person, Yes Place Level of alertness: Alert Behavior: guarded, suspicious Psychomotor activity: Slowed Eye Contact: Minimal Contact Mood Description: Euthymic/stable Affect description: flat Speech Volume: Soft/Quiet Speech pattern: normal rate, normal rhythm Language & Vocabulary: high school level Thought Process: [place] Thought Content: No Suicidal ideation, No Homicidal ideation, Yes Paranoid delusion Perceptual Disturbances: No Reacting to internal stimuli, No Auditory hallucinations Attention Span Ability: Capable of Focused Attention Memory Description: Grossly Intact Patient Reliability: Questionable Historian Fund of knowledge: Yes average Intelligence Estimate: Average Judgment: Limited Insight: Minimal
--- NOTE | 2017-12-27 14:11 | Psychiatry Progress Note ---
Date of Encounter: 12/27/17 Time of Encounter: 13:30 Subjective Interval history: Pt is a 42 yo,, male, who presents for Schizophrenia. Pt noted that he feels "really good doc." Pt denied any thought to harm himself or anyone else. Pt denied any side effects to current medications. Pt noted he felt safe and comfortable on the unit, "I am safe doc." Pt was in agreement with current treatment plan. Pt noted that he is doing alright today. Pt noted he slept about 8 hours last night. Pt noted his appetite is better. Pt rated his depression a 0, on a scale of zero to ten with ten being the worst and zero being none. Pt rate his anxiety a 0, on the same scale. Pt denied any auditory or visiual hallucinations. Pt denied any current thoughts to harm himself or anyone else. No TD noted, AIMS=0 Tobacco: Denies any current Alcohol: Denies any current Street: Denies any current Caffeine: 2-3 drinks per day Pt denies any hx of HIV, Hep C, TBI or Seizures. 1.Interval hx 2.Continue current medications 3.Review current labs 4.Pt had an opportunity to ask questions and discuss current treatment plan. 5.Supportive therapy was provided 6.Pt encouraged to consider group or individual therapy 7.Pt was in agreement with treatment plan. 8.Pt was educated on the risks benefits and side effects of current medications. 9. Pt agreed to start Paliperidone 234 mg IM consdier Q21 days vs Oral supplementation of paliperidone tabs. 10. Coordinate for discharge planning Review of Systems Constitutional: Denies: fever, chills, weakness, weight change Eyes: Denies: eye pain, vision change Ears, Nose, Throat: Denies: ear pain, throat pain, dental pain, hearing loss, congestion Cardiovascular: Denies: chest pain, palpitations, dyspnea on exertion Respiratory: Denies: cough, dyspnea, wheezes Gastrointestinal: Denies: abdominal pain, nausea, vomiting, diarrhea, constipation Musculoskeletal: Denies: joint swelling, joint pain Neurological: Denies: headache, weakness, numbness, memory loss Psychiatric: Reports: depression, anxiety, change in appetite, auditory hallucinations Results - Vital Signs Vital Signs: Temp Pulse Resp BP Pulse Ox 97.3 F L 69 16 99/66 99 12/27/17 09:00 12/27/17 09:00 12/27/17 09:00 12/27/17 09:00 12/27/17 09:00 Assessment and Plan (1) Chronic schizophrenia Current visit: Yes Status: Chronic Plan: Continue hospitalization, Close observation, Suicide Precautions per unit protocol, Encourage participation in unit milieu, Group Therapy, Monitor sleep, Monitor appetite Risks, benefits, side effects, alternatives discussed w/pt: Yes Patient agreeable to treatment: Yes (2) Anorexia Current visit: Yes Status: Acute Plan: Continue hospitalization, Close observation, Suicide Precautions per unit protocol, Encourage participation in unit milieu, Group Therapy, Monitor sleep, Monitor appetite Risks, benefits, side effects, alternatives discussed w/pt: Yes Patient agreeable to treatment: Yes (3) Patient's noncompliance with other medical treatment and regimen Current visit: Yes Status: Acute Plan: Continue hospitalization, Close observation, Suicide Precautions per unit protocol, Encourage participation in unit milieu, Group Therapy, Monitor sleep, Monitor appetite Risks, benefits, side effects, alternatives discussed w/pt: Yes Patient agreeable to treatment: Yes Consult Discharge Plan - Plan Additional Instructions: Invega Sustenna 234mg given 12/15/2017. Invega Sustenna 156mg given 12/21/2017. Invega Sustenna 234mg due to be given again on 01/18/2018. Referrals: [place], [facility] [Other] (Dr. Dash will resume outpatient psychiatric assessment and medication management services for in your half-way. Dr. Dash will see you within 4 weeks of your return to the half-way. You will also resume case management and social sciences chair services in the home as well.) Jose Guillen MD [Partnered Physician] - (Dr. Guillen will resume primary healthcare services for you in your half-way. Dr. Guillen will see you within 4 weeks of your return to the half-way.) Psychiatry Exam - Constitutional Vitals: Temp Pulse Resp BP Pulse Ox 97.3 F L 69 16 99/66 99 12/27/17 09:00 12/27/17 09:00 12/27/17 09:00 12/27/17 09:00 12/27/17 09:00 General appearance: age & developmentally appropriate, well-groomed, well- nourished - Musculoskeletal Gait: normal Station: relaxed Strength & Tone: normal for patient - Psychiatric Patient Orientation: Yes Person, Yes Time, Yes Place Level of alertness: Alert Behavior: calm, cooperative Psychomotor activity: Normal Eye Contact: Maintains Eye Contact Mood Description: Euthymic/stable Affect description: congruent with mood, full range Speech Volume: Normal Speech pattern: normal rate, normal rhythm, normal tone, fluent, spontaneous Language & Vocabulary: consistent with education Thought Process: Linear, Goal Oriented Thought Content: No Suicidal ideation, No Homicidal ideation, No Overt delusions Perceptual Disturbances: No Auditory hallucinations, No Visual hallucinations Attention Span Ability: Capable of Focused Attention Memory Description: Grossly Intact Patient Reliability: Reliable Historian Fund of knowledge: Yes abstraction ability, Yes aware of current events Intelligence Estimate: Average Judgment: Limited Insight: Partial
--- NOTE | 2017-12-28 15:58 | Psychiatry Progress Note ---
Date of Encounter: 12/28/17 Time of Encounter: 15:45 Subjective Interval history: The patient is a 42-year-old single white male. Chief complaint altered with various say History of present illness the patient has reported auditory hallucinations and hearing voices but reports that they have no where to go that he is gotten his injection. He reports that he is eating better and he feels his nutrition coming back as evidence by the red illness in the palms. His father comes to visit him twice a week and the patient feels that he is doing better he would like to continue with current treatment regimen but eventually return to the correction as 4-5 injections may be necessary to determine whether long-acting paliperidone is helpful. If the patient overeats he notices the voice of God coming into town to correct and not overeat. No side effects reported Review of Systems Psychiatric: Reports: depression, anxiety, change in appetite, auditory hallucinations Results - Vital Signs Vital Signs: Temp Pulse Resp BP Pulse Ox 97.4 F L 117 16 110/79 98 12/28/17 09:00 12/28/17 09:00 12/28/17 09:00 12/28/17 09:00 12/28/17 09:00 Assessment and Plan (1) Paranoid schizophrenia Current visit: Yes Status: Acute Plan: Continue hospitalization, Suicide Precautions per unit protocol, Encourage participation in unit milieu Risks, benefits, side effects, alternatives discussed w/pt: Yes Patient agreeable to treatment: Yes (2) Anorexia Current visit: Yes Status: Acute Plan: Continue hospitalization, Close observation, Monitor sleep, Monitor appetite Risks, benefits, side effects, alternatives discussed w/pt: Yes Patient agreeable to treatment: Yes (3) Chronic schizophrenia Current visit: Yes Status: Chronic Plan: Continue hospitalization, Close observation, Encourage participation in unit milieu Risks, benefits, side effects, alternatives discussed w/pt: Yes Patient agreeable to treatment: Yes (4) Patient's noncompliance with other medical treatment and regimen Current visit: Yes Status: Acute Plan: Family/Supportive other meeting, Other Risks, benefits, side effects, alternatives discussed w/pt: Yes Patient agreeable to treatment: Yes Consult Discharge Plan - Plan Additional Instructions: Invega Sustenna 234mg given 12/15/2017. Invega Sustenna 156mg given 12/21/2017. Invega Sustenna 234mg due to be given again on 01/18/2018. Referrals: [place], Mental [facility] [Other] (Dr. Dash will resume outpatient psychiatric assessment and medication management services for in your correction. Dr. Dash will see you within 4 weeks of your return to the correction. You will also resume case management and social work manager services in the home as well.) Jose Guillen MD [Partnered Physician] - (Dr. Guillen will resume primary healthcare services for you in your correction. Dr. Guillen will see you within 4 weeks of your return to the correction.) Psychiatry Exam - Constitutional Vitals: Temp Pulse Resp BP Pulse Ox 97.4 F L 117 16 110/79 98 12/28/17 09:00 12/28/17 09:00 12/28/17 09:00 12/28/17 09:00 12/28/17 09:00 General appearance: age & developmentally appropriate, well-groomed, well- nourished - Musculoskeletal Gait: normal Station: relaxed Strength & Tone: normal for patient - Psychiatric Patient Orientation: Yes Person, Yes Time, Yes Place Level of alertness: Alert Behavior: calm, cooperative Psychomotor activity: Normal Eye Contact: Maintains Eye Contact Mood Description: Depressed Affect description: congruent with mood, full range Speech Volume: Normal Speech pattern: normal rate, normal rhythm, normal tone, fluent, spontaneous Language & Vocabulary: consistent with education Thought Process: Linear, Goal Oriented Thought Content: No Suicidal ideation, No Homicidal ideation, No Overt delusions Perceptual Disturbances: Yes Auditory hallucinations, No Visual hallucinations Attention Span Ability: Capable of Focused Attention Memory Description: Grossly Intact Patient Reliability: Reliable Historian Fund of knowledge: Yes abstraction ability, Yes aware of current events Intelligence Estimate: Average Judgment: Limited Insight: Minimal
--- NOTE | 2017-12-29 15:12 | Psychiatry Progress Note ---
Date of Encounter: 12/29/17 Time of Encounter: 15:15 Subjective Interval history: ID the patient is a 42-year-old's white male. Chief complaint sure. I can live with his medicine. History of present illness patient is continued to do well in his no change in his thinking. he is eating okay when he does eat too much she does hear the voice of God telling him he ate too much he is tolerating the medicine without significant side effects. He expects to see his father for a visit probably. He will talk to his father about his future plans. These may include going back to the care home. Review of Systems Psychiatric: Reports: depression, anxiety, change in appetite, auditory hallucinations Results - Vital Signs Vital Signs: Temp Pulse Resp BP Pulse Ox 99.7 F H 116 16 99/69 100 12/29/17 09:00 12/29/17 09:00 12/29/17 09:00 12/29/17 09:00 12/29/17 09:00 Assessment and Plan (1) Paranoid schizophrenia Current visit: Yes Status: Acute Plan: Continue hospitalization, Suicide Precautions per unit protocol, Encourage participation in unit milieu, Monitor sleep Risks, benefits, side effects, alternatives discussed w/pt: Yes Patient agreeable to treatment: Yes (2) Anorexia Current visit: Yes Status: Acute Plan: Monitor appetite Risks, benefits, side effects, alternatives discussed w/pt: Yes Patient agreeable to treatment: Yes (3) Chronic schizophrenia Current visit: Yes Status: Chronic Plan: Family/Supportive other meeting Risks, benefits, side effects, alternatives discussed w/pt: Yes Patient agreeable to treatment: Yes (4) Patient's noncompliance with other medical treatment and regimen Current visit: Yes Status: Acute Plan: Continue hospitalization, Close observation, Suicide Precautions per unit protocol, Monitor sleep, Monitor appetite Risks, benefits, side effects, alternatives discussed w/pt: Yes Patient agreeable to treatment: Yes Consult Discharge Plan - Plan Additional Instructions: Invega Sustenna 234mg given 12/15/2017. Invega Sustenna 156mg given 12/21/2017. Invega Sustenna 234mg due to be given again on 01/18/2018. Referrals: [place], Mental [facility] [Other] (Dr. Dash will resume outpatient psychiatric assessment and medication management services for in your care home. Dr. Dash will see you within 4 weeks of your return to the care home. You will also resume case management and dialysis social worker services in the home as well.) Jose Guillen MD [Partnered Physician] - (Dr. Guillen will resume primary healthcare services for you in your care home. Dr. Guillen will see you within 4 weeks of your return to the care home.) Psychiatry Exam - Constitutional Vitals: Temp Pulse Resp BP Pulse Ox 99.7 F H 116 16 99/69 100 12/29/17 09:00 12/29/17 09:00 12/29/17 09:00 12/29/17 09:00 12/29/17 09:00 General appearance: age & developmentally appropriate, well-groomed, well- nourished - Musculoskeletal Gait: normal Station: relaxed Strength & Tone: normal for patient - Psychiatric Patient Orientation: Yes Person, Yes Time, Yes Place Level of alertness: Alert Behavior: calm, cooperative Psychomotor activity: Normal Eye Contact: Maintains Eye Contact Mood Description: Depressed, Anxious Affect description: congruent with mood, full range Speech Volume: Normal Speech pattern: normal rate, normal rhythm, normal tone, fluent, spontaneous Language & Vocabulary: consistent with education Thought Process: Goal Oriented, Tangential, Thought Blocking Thought Content: No Suicidal ideation, No Homicidal ideation, No Overt delusions, Yes Spiritism delusion, Yes Obsessive thoughts Perceptual Disturbances: Yes Auditory hallucinations, No Visual hallucinations Attention Span Ability: Capable of Focused Attention Memory Description: Grossly Intact Patient Reliability: Questionable Historian Fund of knowledge: Yes abstraction ability, Yes average Intelligence Estimate: Average Judgment: Limited Insight: Minimal
--- NOTE | 2017-12-30 10:54 | Psychiatry Progress Note ---
Date of Encounter: 12/30/17 Time of Encounter: 11:45 Review of Systems Psychiatric: Reports: anxiety, auditory hallucinations Results - Vital Signs Vital Signs: Temp Pulse Resp BP Pulse Ox 97.6 F 111 18 103/67 97 12/30/17 09:00 12/30/17 09:00 12/30/17 09:00 12/30/17 09:00 12/30/17 09:00 Assessment and Plan (1) Paranoid schizophrenia Current visit: Yes Status: Acute Plan: Continue hospitalization, Close observation, Suicide Precautions per unit protocol, Encourage participation in unit milieu, Group Therapy Risks, benefits, side effects, alternatives discussed w/pt: Yes Patient agreeable to treatment: Yes (2) Anorexia Current visit: Yes Status: Acute Plan: Continue hospitalization, Close observation Risks, benefits, side effects, alternatives discussed w/pt: Yes Patient agreeable to treatment: Yes (3) Chronic schizophrenia Current visit: Yes Status: Chronic Plan: Continue hospitalization, Secure weapons Risks, benefits, side effects, alternatives discussed w/pt: Yes Patient agreeable to treatment: Yes (4) Patient's noncompliance with other medical treatment and regimen Current visit: Yes Status: Acute Plan: Family/Supportive other meeting Risks, benefits, side effects, alternatives discussed w/pt: Yes Patient agreeable to treatment: Yes Consult Discharge Plan - Plan Additional Instructions: Invega Sustenna 234mg given 12/15/2017. Invega Sustenna 156mg given 12/21/2017. Invega Sustenna 234mg due to be given again on 01/18/2018. Referrals: [place], [facility] [Other] (Dr. Dash will resume outpatient psychiatric assessment and medication management services for in your retirement. Dr. Dash will see you within 4 weeks of your return to the retirement. You will also resume case management and director social welfare services in the home as well.) Jose Guillen MD [Partnered Physician] - (Dr. Guillen will resume primary healthcare services for you in your retirement. Dr. Guillen will see you within 4 weeks of your return to the retirement.) Psychiatry Exam - Constitutional Vitals: Temp Pulse Resp BP Pulse Ox 97.6 F 111 18 103/67 97 12/30/17 09:00 12/30/17 09:00 12/30/17 09:00 12/30/17 09:00 12/30/17 09:00 General appearance: age & developmentally appropriate, well-groomed, well- nourished - Musculoskeletal Gait: normal Station: relaxed Strength & Tone: normal for patient - Psychiatric Patient Orientation: Yes Person, Yes Time, Yes Place Level of alertness: Alert Behavior: calm, nervous Psychomotor activity: Normal Eye Contact: Maintains Eye Contact Mood Description: Euthymic/stable, Anxious Affect description: congruent with mood, full range Speech Volume: Normal Speech pattern: normal rate, normal rhythm, normal tone, fluent, spontaneous Language & Vocabulary: consistent with education Thought Process: Linear, Goal Oriented Thought Content: No Suicidal ideation, No Homicidal ideation, No Overt delusions, Yes Evangelical delusion Perceptual Disturbances: Yes Auditory hallucinations, No Visual hallucinations Attention Span Ability: Capable of Focused Attention Memory Description: Grossly Intact Patient Reliability: Questionable Historian Fund of knowledge: Yes abstraction ability, Yes below average Intelligence Estimate: Average Judgment: Fair Insight: Partial
[2017-12-31 09:40] VITALS: BP 96/64
--- NOTE | 2017-12-31 11:54 | Discharge Summary ---
Date of Encounter: 12/31/17 Time of Encounter: 11:30 Diagnosis - Discharge Diagnosis (1) Paranoid schizophrenia Priority: Primary Status: Acute (2) Anorexia Priority: Secondary Status: Resolved (3) Chronic schizophrenia Status: Chronic (4) Patient's noncompliance with other medical treatment and regimen Status: Chronic Medications - Discharge Medications Prescriptions: Paliperidone Palmitate [Invega Sustenna] 234 mg IM QMONTH 30 Days #1 syringe Benztropine [Cogentin] 0.5 mg PO BID 30 Days #60 tablet Paliperidone [Invega] 9 mg PO DAILY 30 Days #30 tab.er.[id number] Quetiapine Fumarate [Seroquel] 50 mg PO HS 30 Days #30 tablet Simvastatin [Zocor] 40 mg PO HS 30 Days #30 tablet Paliperidone Palmitate [Invega Sustenna] 156 mg IM ONCE 12/21/17 [History] Benztropine [Cogentin] 0.5 mg PO BID 30 Days #60 tablet 12/31/17 [Rx] Paliperidone Palmitate [Invega Sustenna] 234 mg IM QMONTH 30 Days #1 syringe 12/31/17 [Rx] Paliperidone [Invega] 9 mg PO DAILY 30 Days #30 tab.er.[id number] 12/31/17 [Rx] Quetiapine Fumarate [Seroquel] 50 mg PO HS 30 Days #30 tablet 12/31/17 [Rx] Simvastatin [Zocor] 40 mg PO HS 30 Days #30 tablet 12/31/17 [Rx] Allergy/AdvReac Type Severity Reaction Status Date / Time shellfish derived Allergy Vomiting Verified 12/09/17 19:51 Results Procedures and tests throughout hospitalization: Completed Lab Orders Category Date Time Status Acetaminophen Stat Lab 12/09/17 20:20 Completed Basic Metabolic Panel Stat Lab 12/09/17 20:20 Completed CBC [Complete Blood Count] [HEME] Stat Lab 12/11/17 08:04 Completed Chem 13 [Comprehensive Metabolic Panel] Stat Lab 12/11/17 08:04 Completed Complete Blood Count [HEME] Stat Lab 12/09/17 20:20 Completed Drug Screen, Urine [UCHEM] Stat Lab 12/09/17 20:05 Completed Ethanol Stat Lab 12/09/17 20:20 Completed Lipid Panel Routine Lab 12/14/17 07:53 Completed Salicylate Stat Lab 12/09/17 20:20 Completed UA w. reflex culture [Urinalysis Reflex Cult & Micro] [ Lab 12/11/17 11:35 Completed URIN] Routine Urinalysis reflex Microscopic [URIN] Stat Lab 12/09/17 20:05 Completed Provider Date of admission: 12/09/17 23:11 Primary care physician: PCP NONE Discharging clinician: Gordon Perez Psychiatry Exam - Constitutional Vitals: Temp Pulse Resp BP Pulse Ox 97.1 F L 111 14 96/64 100 12/31/17 09:00 12/31/17 09:00 12/31/17 09:00 12/31/17 09:00 12/31/17 09:00 General appearance: age & developmentally appropriate, well-groomed, well- nourished - Musculoskeletal Gait: normal Station: relaxed Strength & Tone: normal for patient - Psychiatric Patient Orientation: Yes Person, Yes Time, Yes Place Level of alertness: Alert Behavior: calm, cooperative Psychomotor activity: Normal Eye Contact: Minimal Contact Mood Description: Euthymic/stable Affect description: congruent with mood, constricted Speech Volume: Normal Speech pattern: normal rate, normal rhythm, normal tone, fluent, spontaneous Language & Vocabulary: consistent with education Thought Process: Linear, Goal Oriented Thought Content: No Suicidal ideation, No Homicidal ideation, No Overt delusions, Yes Ideas of reference, Yes Anabaptist delusion Perceptual Disturbances: Yes Auditory hallucinations, No Visual hallucinations Attention Span Ability: Capable of Focused Attention Memory Description: Grossly Intact Patient Reliability: Questionable Historian Fund of knowledge: Yes abstraction ability, Yes below average Intelligence Estimate: Average Judgment: Fair Insight: Partial Hospital Course Hospital course: Mr. Alaniz is a 42 year old male The patient was hospitalized for 3 weeks. Chief complaint I am eating better now 5 overeating I hear the voice. History of present illness patient was originally admitted for not eating he had significant anorexia planning trouble with appetite but rather saying that he was not hungry. He would hear a voice the voice came to him and said that it would be like a woman to him and that he should not eat. The patient heard voices and operated under this shinto delusion and had significant consequenc es. The patient had been in a alf and had had his Medicaid ran out. He been off medicines but it previously tolerated risperidone. The patient was placed on Invega oral. The patient still refused to take medicines and did not wish to take the injectable form of paliperidone. The patient had involuntary hospitalization request but was able to take the injectable form of paliperidone. He tolerated this without significant difficulty gradually improved improved his oral intake. He would eat sufficient amount. When he felt that he over a he would hear a voice The patient still believed that God was speaking to him or was controlling some of his activities. Nonetheless the patient was gradually more interactive sometimes he was odd preferring not to wear one shoe versus not appear shoes due to the voices and the patient's father visited several times and discussion of side effects laboratory studies and ongoing care and treatment plan were discussed. The patient's plan is to [facility]. Other residents may be sought. The patient may not be compliant with his medicine and for this reason long-acting preparations of paliperidone have been selected 1 every 28 days and in 2019 he could be considered for 1 week 90 days. This information will be sent to his follow-up physicians and mental health providers. The patient showed no abnormal movements laboratory studies did not reveal significant abnormalities patient has a history of hyperlipidemia but this was well controlled with simvastatin. Patient did not evidence suicidal or homicidal ideation. He was eating satisfactorily at the time of discharge - Time Spent with Patient Total time spent providing and/or coordinating discharge services: Less than 30 minutes Assessment and Plan - Patient/Caregiver Discharge Instructions Activity: resume usual activities as tolerated Diet: regular diet Additional Instructions: Invega Sustenna 234mg given 12/15/2017. Invega Sustenna 156mg given 12/21/2017. Invega Sustenna 234mg due to be given again on 01/18/2018. - Follow up Plan Follow up with: [place], [facility] [Other] (Dr. Dash will resume outpatient psychiatric assessment and medication management services for in your alf. Dr. Dash will see you within 4 weeks of your return to the alf. You will also resume case management and social work professor services in the home as well.) Jose Guillen MD [Partnered Physician] - (Dr. Guillen will resume primary healthcare services for you in your alf. Dr. Guillen will see you within 4 weeks of your return to the alf.) Functional capacity at discharge: independent ambulation Overall status at discharge: patient is back to baseline Disposition: Home, Self-Care Quality - Multiple Antipsychotics Patient discharged on 2 or more antipsychotic medications: Yes - Justification Documentation of: Recommended plan to taper to monotherapy (This patient failed to improve with monotherapy. Seroquel was added to low-dose to help with sleep and help with appetite. The patient improved over a 3 week hospitalization. Continuing Seroquel is necessary during the period of transition. He can be reevaluated for taper on an outpatient basis.) Procedures - Procedures Procedures: Medication Management, Crisis Stabilization, Supportive Therapy, Group Therapy, Psychoeducational Therapy
== END 2017-12-31 13:15 | disposition home or self-care (01) | DRG 750 ==
LOC: EMEROOARM 19:44 → 1ANU 23:11 → SUATTDRO 23:11 → 1ANU 23:28
PROVIDERS: ADMIT Psychiatry & Neurology Forensic Psychiatry; ATTEND Psychiatry & Neurology Forensic Psychiatry